=== PATIENT | female | born 1940 | race African-American/Black ===

== ENCOUNTER 2017-02-09 16:16 | Emergency (ER) | payer OTHER ==
--- NOTE | 2017-02-09 16:39 | PDOC ---
History of Present Illness - General Stated Complaint: MVP Time Seen by Provider: 02/09/17 16:38 History Source: Patient Exam Limitations: No Limitations - History of Present Illness Initial Comments: 02/09/17 16:38 This patient is a 76 y.o. F with pmh of HTN, DM, and anemia presenting with Past Surgical: Allergies: Social Hx: PCP: Dr. Fishman Past History - Past Medical History Allergies/Adverse Reactions: Allergies Allergy/AdvReac Type Severity Reaction Status Date / Time No Known Drug Allergies Allergy Verified 05/29/16 15:14 Home Medications: Ambulatory Orders Lisinopril [Prinivil -] 10 mg PO BID 05/24/12 Glimepiride [Amaryl] 4 mg PO BID 06/26/12 Saxagliptin HCl [Onglyza] 5 mg PO DAILY 01/01/16 Anemia: Yes Asthma: No Cancer: No Cardiac Disorders: No CVA: No COPD: No CHF: No Dementia: No Diabetes: Yes GI Disorders: Yes Disorders: No HTN: Yes Hypercholesterolemia: No Liver Disease: No Seizures: No Thyroid Disease: No - Surgical History Abdominal Surgery: No Appendectomy: No Cardiac Surgery: No Cholecystectomy: No Lung Surgery: No Neurologic Surgery: No Orthopedic Surgery: No - Immunization History Immunization Up to Date: Yes - Suicide/Smoking/Psychosocial Hx Smoking Status: No Smoking History: Never smoked Have you smoked in the past 12 months: No Number of Cigarettes Smoked Daily: 0 Hx Alcohol Use: No Drug/Substance Use Hx: No Substance Use Type: None Hx Substance Use Treatment: No Review of Systems - Review of Systems Comments:: 02/09/17 16:39 GENERAL/CONSTITUTIONAL: No fever or chills. No weakness. HEAD, EYES, EARS, NOSE AND THROAT: No change in vision. No ear pain or discharge. No sore throat. CARDIOVASCULAR: No chest pain or shortness of breath RESPIRATORY: No cough, wheezing, or hemoptysis. GASTROINTESTINAL: No nausea, vomiting, diarrhea or constipation. GENITOURINARY: No dysuria, frequency, or change in urination. MUSCULOSKELETAL: No joint or muscle swelling or pain. No neck or back pain. SKIN: No rash NEUROLOGIC: No headache, vertigo, loss of consciousness, or change in strength/ sensation. ENDOCRINE: No increased thirst. No abnormal weight change HEMATOLOGIC/LYMPHATIC: No anemia, easy bleeding, or history of blood clots. ALLERGIC/IMMUNOLOGIC: No hives or skin allergy. *Physical Exam - Physical Exam Comments: 02/09/17 16:39 GENERAL: Awake, alert, and fully oriented, in no acute distress HEAD: No signs of trauma, normocephalic, atraumatic EYES: PERRLA, EOMI, sclera anicteric, conjunctiva clear ENT: Auricles normal inspection, hearing grossly normal, nares patent, oropharynx clear without exudates. Moist mucosa NECK: Normal ROM, supple, no lymphadenopathy, JVD, or masses LUNGS: No distress, speaks full sentences, clear to auscultation bilaterally HEART: Regular rate and rhythm, normal S1 and S2, no murmurs, rubs or gallops, peripheral pulses normal and equal bilaterally. ABDOMEN: Soft, nontender, normoactive bowel sounds. No guarding, no rebound. No masses EXTREMITIES: Normal inspection, Normal range of motion, no edema. No clubbing or cyanosis. NEUROLOGICAL: Cranial nerves II through XII grossly intact. Normal speech, normal gait, no focal sensorimotor deficits SKIN: Warm, Dry, normal turgor, no rashes or lesions noted.
[2017-02-09 17:08] VITALS: PULSE 77; BMI 74.7
[2017-02-09] MEDS ORDERED: KETOROLAC TROMETHAMINE 30 MG/1 ML VIAL IVPUSH STA (17:23)
[2017-02-09] MEDS ORDERED: CYCLOBENZAPRINE HCL 5 MG TABLET PO ONE (17:24)
[2017-02-09] MEDS ORDERED: CYCLOBENZAPRINE HCL 10 MG TABLET (FP) ONE (17:25)
[2017-02-09] MEDS ORDERED: KETOROLAC TROMETHAMINE 30 MG/1 ML VIAL ONE (17:25)
[2017-02-09] MEDS ORDERED: KETOROLAC TROMETHAMINE 60 MG/2 ML VIAL ONE (17:25)
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
[2017-02-09 18:43] VITALS: BP 180/90; TEMP 97.8
== END 2017-02-09 18:43 | disposition home or self-care (01) ==
LOC: JER 16:16
PROC: 3E0333Z Introduction of Anti-inflammatory into Peripheral Vein, Percutaneous Approach (ICD-10-PCS; principal; 2017-02-09)
DX: R51 Headache (principal); V43.52XA Car driver injured in collision with other type car in traffic accident, initial encounter; Y92.488 Other paved roadways as the place of occurrence of the external cause; Y93.89 Activity, other specified; I10 Essential (primary) hypertension; E11.9 Type 2 diabetes mellitus without complications; Z79.84 Long term (current) use of oral hypoglycemic drugs
CPT/HCPCS: 70450-TC; 99282-25

== ENCOUNTER 2017-10-08 16:38 | Observation (INO) | payer MEDICARE, OTHER ==
--- NOTE | 2017-10-08 16:41 | PDOC ---
Rapid Medical Evaluation Time Seen by Provider: 10/08/17 16:40 Medical Evaluation: Allergies Allergy/AdvReac Type Severity Reaction Status Date / Time No Known Drug Allergies Allergy Verified 02/09/17 17:08 10/08/17 16:40 I have performed a brief in-person evaluation of this patient. The patient presents with a chief complaint of: CP w/ sob since yesterday. H/o HTN, DM, anemia Pertinent physical exam findings:appears very uncomfortable at triage but stable I have ordered the following:ekg/cxr/labs The patient will proceed to the ED for further evaluation Discharge Disposition - Diagnosis Chest pain Qualifiers: Chest pain type: unspecified Qualified Code(s): R07.9 - Chest pain, unspecified - Referrals - Patient Instructions - Post Discharge Activity
[2017-10-08 17:15] LABS: BASO % 0.7 % (0-2.0); HEMATOCRIT 33.4 % (32.4-45.2); HEMOGLOBIN 10.9 GM/dL (10.7-15.3); LYMPH % 46.7 % (8-40); MCH 26.3 pg (25.7-33.7); MCHC 32.5 g/dl (32.0-36.0); MEAN CELL VOLUME 80.8 fl (80-96); MEAN PLT VOLUME 10.2 fl (7.5-11.1); MONO % 7.5 % (3.8-10.2); NEUT % 42.1 % (42.8-82.8); PLATELET COUNT 188 K/MM3 (134-434); RBC 4.14 M/mm3 (3.60-5.2); RDW 13.1 % (11.6-15.6); WHITE BLOOD COUNT 6.6 K/mm3 (4.0-10.0)
--- NOTE | 2017-10-08 17:38 | PDOC ---
History of Present Illness - General Chief Complaint: Chest Pain Stated Complaint: CHEST PAIN Time Seen by Provider: 10/08/17 16:40 History Source: Patient Exam Limitations: No Limitations - History of Present Illness Initial Comments: 10/08/17 17:59 77y F hx of htn, dm, presenst with complaint of chest pain and sob. Pt states shew as in her usual state of health until yeserday when she started to feel sob. pt notes she was dyspneic on exertion and endorses orthopnea. pt notes mild chest pressure, symptoms resolved until this morning when she was heading to the [facility]. 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 pt notes some leg swelling which typically is not a problem for her. pt denies any cough, fever/chills, abd pain, n/v, diaprresis PMD: Sravanthi pt states she cannot take asa due to 'bleeding everywhere' Past History - Past Medical History Allergies/Adverse Reactions: Allergies Allergy/AdvReac Type Severity Reaction Status Date / Time No Known Drug Allergies Allergy Verified 10/08/17 16:40 acetaminophen [From Percocet] AdvReac Mild Verified 10/09/17 04:25 oxycodone [From Percocet] AdvReac Mild Verified 10/09/17 04:25 Home Medications: Ambulatory Orders Saxagliptin HCl [Onglyza] 5 mg PO DAILY 01/01/16 Lisinopril [Zestril] 30 mg PO DAILY 10/08/17 Aspirin [ASA -] 81 mg PO DAILY #30 tab.chew 10/13/17 Atorvastatin Ca [Lipitor] 40 mg PO HS #30 tablet 10/13/17 Furosemide [Lasix -] 40 mg PO DAILY #30 tablet 10/13/17 Isosorbide Mononitrate [Imdur -] 30 mg PO DAILY #30 tab.sr.24h 10/13/17 Lisinopril [Prinivil] 10 mg PO DAILY tablet 10/13/17 Metoprolol Succinate [Toprol XL -] 25 mg PO DAILY #30 tab.sr.24h 10/13/17 Anemia: Yes Asthma: No Cancer: No Cardiac Disorders: No CVA: No COPD: No CHF: No Dementia: No Diabetes: Yes GI Disorders: Yes Disorders: No HTN: Yes Hypercholesterolemia: No Liver Disease: No Seizures: No Thyroid Disease: No - Surgical History Abdominal Surgery: No Appendectomy: No Cardiac Surgery: No Cholecystectomy: No Lung Surgery: No Neurologic Surgery: No Orthopedic Surgery: No - Immunization History Immunization Up to Date: Yes - Suicide/Smoking/Psychosocial Hx Smoking Status: No Smoking History: Never smoked Have you smoked in the past 12 months: No Number of Cigarettes Smoked Daily: 0 Hx Alcohol Use: No Drug/Substance Use Hx: No Substance Use Type: None Hx Substance Use Treatment: No Cardiac Specific PMH - Complaint Specific PMHX Pacemaker: No Review of Systems - Review of Systems Able to Perform ROS?: Yes Comments:: 10/08/17 18:04 Constitutional - no reported Fever, Chills, HEENT: no reported vision changes, sore throat Respiratory: +manzanares, sob, no reported cough, hemoptysis Cardiac:+chest pain,leg swelling no reported palpitations, light headedness, Abd/GI: no reported abd pain, nausea, vomiting, blood per rectum, melena, diarrhea : no reported dysuria, frequency, discharge Musculskelatal - no reported back pain, joint swelling skin - no reported bruising, erythema, rash neurological: no reported headache, numbness, focal weakness, tingling, ataxia, hematologic: no reported easy bruising, easy bleeding *Physical Exam - Vital Signs Last Vital Signs Temp Pulse Resp BP Pulse Ox 99.8 F H 68 18 127/61 100 10/13/17 13:55 10/13/17 13:55 10/13/17 13:55 10/13/17 13:55 10/13/17 10:00 - Physical Exam Comments: 10/08/17 18:05 GENERAL: The patient is awake, alert, and fully oriented, Nontoxic - in no acute distress. HEAD: Normocephalic, atraumatic. EYES: extraocular movements intact, sclera anicteric, conjunctiva clear. ENT: Normal voice, Moist mucous membranes. NECK: Normal range of motion, supple LUNGS: Breath sounds equal, clear to auscultation bilaterally. No wheezes, no rhonchi, no rales. HEART: Regular rate and rhythm, normal S1 and S2 without murmur, rub or gallop. ABDOMEN: Soft, nontender, normoactive bowel sounds. No guarding, no rebound. . No CVA tenderness EXTREMITIES: Normal range of motion, +1piting edema b/l, neg homans sign. NEUROLOGICAL: No facial assymetry, Normal speech, PSYCH: Normal mood, normal affect. SKIN: Warm, Dry, normal turgor, Heart Score/ECG Review - ECG Impressions Comment:: 10/08/17 18:07 Twelve-lead EKG was performed and reviewed by me. There is normal sinus rhythm with a normal rate. The axis is normal. The intervals are normal. There is normal R wave progression twi in I and aVL, no change from ekg dated jan 01, 2016 ED Treatment Course - LABORATORY CBC & Chemistry Diagram: 10/13/17 06:45 10/13/17 06:45 - ADDITIONAL ORDERS Additional order review: 10/08/17 17:06 RBC 4.14 MCV 80.8 MCHC 32.5 RDW 13.1 MPV 10.2 Neutrophils % 42.1 L D Lymphocytes % 46.7 H D Monocytes % 7.5 Eosinophils % 3.0 D Basophils % 0.7 - Medications Given in the ED: ED Medications Discontinued Medications Generic Name Dose Route Start Last Admin Trade Name Freq PRN Reason Stop Dose Admin Acetaminophen 325 mg 10/08/17 23:00 10/08/17 23:35 Tylenol - PO 10/08/17 23:01 Not Given ONCE ONE Aspirin 81 mg 10/09/17 10:00 10/13/17 09:45 Asa - PO 81 mg DAILY LUCA Administration Atorvastatin Calcium 40 mg 10/09/17 22:00 10/12/17 21:48 Lipitor - PO 40 mg HS LUCA Administration Enoxaparin Sodium 100 mg 10/09/17 22:00 10/13/17 09:45 Lovenox - SQ Not Given BID LUCA Furosemide 40 mg 10/11/17 16:15 10/13/17 09:45 Lasix - PO 40 mg DAILY LUCA Administration Insulin Aspart 1 vial 10/09/17 07:00 10/13/17 11:52 Novolog Vial Sliding Scale - SQ 8 units TIDAC LUCA Administration Protocol Isosorbide Mononitrate 30 mg 10/09/17 18:15 10/13/17 09:45 Imdur - PO 30 mg DAILY LUCA Administration Lisinopril 30 mg 10/09/17 10:00 10/09/17 09:37 Prinivil PO 30 mg DAILY LUCA Administration Lisinopril 10 mg 10/10/17 10:00 10/13/17 09:45 Prinivil PO 10 mg DAILY LUCA Administration Metoprolol Succinate 25 mg 10/09/17 18:15 10/13/17 09:45 Toprol Xl - PO 25 mg DAILY LUCA Administration Oxycodone HCl 5 mg 10/08/17 23:00 10/08/17 23:35 Roxicodone - PO 10/08/17 23:01 Not Given ONCE ONE Regadenoson 0.4 mg 10/12/17 14:30 10/12/17 13:05 Lexiscan IVPUSH 10/12/17 14:31 0.4 mg ONCE ONE Administration Medical Decision Making - Medical Decision Making 10/08/17 18:06 77-year-old female history of diabetes, hypertension presenting with complaint of chest pain, shortness of breath, orthopnea On exam the patient is in no acute distress however she does have some pitting edema in lower extremities. Differential patient's symptoms includes possible ACS, congestive heart failure , renal failure, liver failure Will obtain, CBC, LFTs, UA, EKG, chest x-ray Will discuss with an IV at disposition anticipate observation for ACS stratification 10/08/17 18:[address] wang agree with admission for further management Case discussed in detail with admitting physician including history, physical exam and ancillary studies. Admitting physician has assumed care for the patient, will follow all pending diagnostics and will complete the evaluation and treatment. *DC/Admit/Observation/Transfer Diagnosis at time of Disposition: Chest pain Qualifiers: Chest pain type: unspecified Qualified Code(s): R07.9 - Chest pain, unspecified - Discharge Dispostion Disposition: VNS/HOME HEALTH CARE Condition at time of disposition: Stable Decision to Admit order: Yes - Prescriptions - Referrals - Patient Instructions - Post Discharge Activity
[2017-10-08 17:42] LABS: CHLORIDE 103 mmol/L (98-107); SODIUM 137 mmol/L (136-145)
[2017-10-08 17:51] LABS: ALBUMIN 3.8 g/dl (3.4-5.0); ALK PHOS 97 U/L (45-117); ANION GAP 6 (8-16); BILIRUBIN,TOTAL 0.9 mg/dL (0.2-1.0); BLOOD UREA NITROGEN 16 mg/dL (7-18); CALCIUM 8.9 mg/dL (8.5-10.1); CO2 28 mmol/L (21-32); CREATININE 1.5 mg/dL (0.55-1.02); GLUCOSE,RANDOM 174 mg/dL (74-106); SGPT/ALT 18 U/L (12-78); TOT PROT 7.9 g/dl (6.4-8.2)
[2017-10-08 17:53] LABS: POTASSIUM 4.4 mmol/L (3.5-5.1); SGOT/AST 16 U/L (15-37)
--- NOTE | 2017-10-08 19:58 | HP ---
CHIEF COMPLAINT: Chest Pain, SOB PCP: Dr. Fishman Canine Deputy: Dr. Arboleda HISTORY OF PRESENT ILLNESS: This is a 77 y/o woman with a past medical history of HTN, DM, Anemia. Who presents to the ED with chest tightness and SOB x 1 day. Patient reports that the pain started when getting out of her car, increased on movement. Patient reports having an Echo recently 09/22/17- unaware of the results. Patient reports seeing her PCP yesterday and was "feeling fine". Patient denies familial Cardiac History. Patient denies fall, trauma or heavy lifting. Patient denies fever, chills, cough, dizziness, CLOUD, palpitations, AP, N/V/D. ER course was notable for: (1) Trop I 0.14 (2) EKG- NSR, T wave abnormality I, avl (3) Recent Travel: None PAST MEDICAL HISTORY: See HPI PAST SURGICAL HISTORY: Fibroids removed Social History: Smoking: Never Alcohol: None Drugs: None Lives with family, Independent Family History: Non-Contributory Allergies No Known Drug Allergies Allergy (Verified 10/08/17 16:40) HOME MEDICATIONS: Home Medications Medication Instructions Recorded Lisinopril [Prinivil -] 10 mg PO BID 05/24/12 Glimepiride [Amaryl] 4 mg PO BID 06/26/12 Saxagliptin HCl [Onglyza] 5 mg PO DAILY 01/01/16 Cyclobenzaprine HCl [Flexeril 10 5 mg PO BID PRN #12 tablet 02/09/17 mg] Ibuprofen [Motrin -] 600 mg PO TID PRN #21 tablet 02/09/17 Oxycodone HCl/Acetaminophen 1 - 2 tab PO Q6H PRN #12 tab MDD 4 02/09/17 [Percocet 5-325 mg Tablet] REVIEW OF SYSTEMS CONSTITUTIONAL: Absent: fever, chills, diaphoresis, generalized weakness, malaise, loss of appetite, weight change HEENT: Absent: rhinorrhea, nasal congestion, throat pain, throat swelling, difficulty swallowing, mouth swelling, ear pain, eye pain, visual changes CARDIOVASCULAR: chest pain, peripheral edema Absent: syncope, palpitations, irregular heart rate, lightheadedness RESPIRATORY: shortness of breath Absent: cough, dyspnea with exertion, orthopnea, wheezing, stridor, hemoptysis GASTROINTESTINAL: Absent: abdominal pain, abdominal distension, nausea, vomiting, diarrhea, constipation, melena, hematochezia GENITOURINARY: Absent: dysuria, frequency, urgency, hesitancy, hematuria, flank pain, genital pain MUSCULOSKELETAL: Absent: myalgia, arthralgia, joint swelling, back pain, neck pain SKIN: Absent: rash, itching, pallor HEMATOLOGIC/IMMUNOLOGIC: Absent: easy bleeding, easy bruising, lymphadenopathy, frequent infections ENDOCRINE: Absent: unexplained weight gain, unexplained weight loss, heat intolerance, cold intolerance NEUROLOGIC: Absent: headache, focal weakness or paresthesias, dizziness, unsteady gait, seizure, mental status changes, bladder or bowel incontinence PSYCHIATRIC: Absent: anxiety, depression, suicidal or homicidal ideation, hallucinations. PHYSICAL EXAMINATION Vital Signs - 24 hr 10/08/17 10/08/17 16:41 19:35 Temperature 98.4 F 97.8 F Pulse Rate 79 66 Pulse Rate [ 66 Apical] Respiratory 20 16 Rate Blood Pressure 148/54 Blood Pressure 175/72 [Left Arm] O2 Sat by Pulse 99 100 Oximetry (%) GENERAL: Awake, alert, and fully oriented, in no acute distress. HEAD: Normal with no signs of trauma. EYES: Pupils equal, round and reactive to light, extraocular movements intact, sclera anicteric, conjunctiva clear. No lid lag. EARS, NOSE, THROAT: Ears normal, nares patent, oropharynx clear without exudates. Moist mucous membranes. NECK: Normal range of motion, supple without lymphadenopathy, JVD, or masses. LUNGS: Breath sounds equal, clear to auscultation bilaterally. No wheezes, and no crackles. No accessory muscle use. HEART: Regular rate and rhythm, normal S1 and S2 without murmur, rub or gallop. CP is reproducible on palpation ABDOMEN: Soft, nontender, not distended, normoactive bowel sounds, no guarding, no rebound, no masses. No hepatomegaly or splenomegaly. MUSCULOSKELETAL: Normal range of motion at all joints. No bony deformities or tenderness. No CVA tenderness. UPPER EXTREMITIES: 2+ pulses, warm, well-perfused. No cyanosis. No clubbing. No peripheral edema. LOWER EXTREMITIES: 2+ pulses, warm, well-perfused. No calf tenderness. +1 Bilateral ankles peripheral edema. NEUROLOGICAL: Cranial nerves II-XII intact. Normal speech. Gait not observed. PSYCHIATRIC: Cooperative. Good eye contact. Appropriate mood and affect. SKIN: Warm, dry, normal turgor, no rashes or lesions noted, normal capillary refill. Laboratory Results - last 24 hr 10/08/17 10/08/17 10/08/17 17:06 17:06 17:06 WBC 6.6 RBC 4.14 Hgb 10.9 Hct 33.4 MCV 80.8 MCH 26.3 MCHC 32.5 RDW 13.1 Plt Count 188 MPV 10.2 Neutrophils % 42.1 L D Lymphocytes % 46.7 H D Monocytes % 7.5 Eosinophils % 3.0 D Basophils % 0.7 Nucleated RBC % 0 Sodium 137 Potassium 4.4 Chloride 103 Carbon Dioxide 28 Anion Gap 6 L BUN 16 Creatinine 1.5 H Creat Clearance w eGFR 33.67 Random Glucose 174 H Calcium 8.9 Total Bilirubin 0.9 D AST 16 ALT 18 Alkaline Phosphatase 97 Creatine Kinase 150 Creatine Kinase Index 2.1 CK-MB (CK-2) 3.17 Troponin I 0.14 H B-Natriuretic Peptide 100.61 Total Protein 7.9 Albumin 3.8 ASSESSMENT/PLAN: This is a 77 y/o woman PMHx HTN, DM, Anemia. Placed in Tele Observation Chest Pain, r/o ACS Plan: FEN - Po Fluids as tolerated - Replete lytes prn - Low Na, Diabetic Diet DVT ppx - OOB - SCDs - Consider ACs if LOS > 48hr Code Status: Full Code Dispo: Tele Observation Problem List - Problem (1) Chest pain Assessment/Plan: - r/o ACS vs musculoskeletal - HEART Score 5 - ESTEBAN 2 - Continue cardiac monitoring - Serial Enzymes - Appreciate Cardiology Consult - EKG- reviewed no change compared to prior study - Will have Day provider f/u with Echo done on 09/22/17 - Asa - Consider Stress test - HgbA1c in am Code(s): R07.9 - CHEST PAIN, UNSPECIFIED Qualifiers: Chest pain type: unspecified Qualified Code(s): R07.9 - Chest pain, unspecified (2) Diabetes Assessment/Plan: - Stable - BGMs - ISS - Continue, NF Onglyza 2.5mg (renal dosing, CrCl 37) - HgbA1c in am - Monitor renal function Code(s): E11.9 - TYPE 2 DIABETES MELLITUS WITHOUT COMPLICATIONS (3) HTN (hypertension) Assessment/Plan: - Stable - Monitor BP - Continue Lisinopril (renal dosing, CrCl 37) - Monitor renal function Code(s): I10 - ESSENTIAL (PRIMARY) HYPERTENSION (4) Renal insufficiency Assessment/Plan: - Cr 1.5 at baseline - Will continue to monitor - FU with nephrology outpatient - Avoid nephrotoxic drugs - Repeat BMP in am Code(s): N28.9 - DISORDER OF KIDNEY AND URETER, UNSPECIFIED (5) Anemia Assessment/Plan: - Stable - At baseline - Will transfuse if Hgb < 7.0 Code(s): D64.9 - ANEMIA, UNSPECIFIED Visit type - Emergency Visit Emergency Visit: Yes ED Registration Date: 10/08/17 Care time: The patient presented to the Emergency Department on the above date and was hospitalized for further evaluation of their emergent condition. - New Patient This patient is new to me today: Yes Date on this admission: 10/08/17 - Critical Care Critical Care patient: No Hospitalist Screening - Colonoscopy Questionnaire Colonoscopy Questionnaire: Colonoscopy Questionnaire - Patient: 50 - 75 years old and never had a screening colonoscopy: No History of colon or rectal polyps, or CA: No History of IBD, Crohn's disease or UC: No History of abdominal radiation therapy as a child: No - Relative: 1 with colon or rectal CA, or polyps at age 60 or younger: No Colon or rectal CA diagnosed at age 45 or younger: No Multiple relatives with colon or rectal CA: No - Outcome: Screening Result: Negative Screen
[2017-10-08 22:58] VITALS: BMI 35.3
[2017-10-08] MEDS ORDERED: oxyCODONE HCL 5 MG TABLET PO ONE (23:00)
[2017-10-08] MEDS ORDERED: ACETAMINOPHEN 325 MG TABLET (FP) PO ONE (23:00)
[2017-10-09 01:33] LABS: INR 0.97 (0.82-1.09)
[2017-10-09] MEDS: INSULIN SLIDING SCALE (NOVOLOG) 1 VIAL SQ SCH ×3 (06:23→17:11)
[2017-10-09] MEDS ORDERED: sitaGLIPtin PHOSPHATE 50 MG TABLET PO SCH (07:00)
[2017-10-09 07:31] LABS: BASO % 0.3 % (0-2.0); EOS % 3.3 % (0-4.5); HEMOGLOBIN 10.9 GM/dL (10.7-15.3); LYMPH % 45.5 % (8-40); MCHC 32.9 g/dl (32.0-36.0); MEAN PLT VOLUME 10.2 fl (7.5-11.1); MONO % 8.1 % (3.8-10.2); NEUT % 42.8 % (42.8-82.8); PLATELET COUNT 166 K/MM3 (134-434); RBC 4.03 M/mm3 (3.60-5.2); RDW 13.4 % (11.6-15.6); WHITE BLOOD COUNT 5.8 K/mm3 (4.0-10.0)
[2017-10-09 07:47] LABS: ANION GAP 8 (8-16); BLOOD UREA NITROGEN 17 mg/dL (7-18); CALCIUM 8.8 mg/dL (8.5-10.1); CHLORIDE 105 mmol/L (98-107); CO2 28 mmol/L (21-32); CREATININE 1.3 mg/dL (0.55-1.02); GLUCOSE,RANDOM 161 mg/dL (74-106); MAGNESIUM 2.1 mg/dL (1.8-2.4); PHOSPHOROUS 4.2 mg/dL (2.5-4.9); POTASSIUM 4.3 mmol/L (3.5-5.1); SODIUM 141 mmol/L (136-145)
--- NOTE | 2017-10-09 08:54 | EKG ---
Test Reason : Blood Pressure : / mmHG Vent. Rate : 071 BPM Atrial Rate : 071 BPM P-R Int : 158 ms QRS Dur : 090 ms QT Int : 402 ms P-R-T Axes : 049 040 105 degrees QTc Int : 436 ms NORMAL SINUS RHYTHM T WAVE ABNORMALITY, CONSIDER LATERAL ISCHEMIA ABNORMAL ECG WHEN COMPARED WITH ECG OF 01-JAN-2016 19:45, NO SIGNIFICANT CHANGE WAS FOUND Confirmed by HOLLIE RAMÍREZ MD ([id number]) on 10/09/2017 8:54:16 AM Referred By: Confirmed By:HOLLIE RAMÍREZ MD
[2017-10-09] MEDS ORDERED: PT OWN MED DRAWER 7, Y5N ONE (09:30)
[2017-10-09] MEDS: ASPIRIN 81 MG CHEWABLE TABLETS PO SCH (09:42)
[2017-10-09] MEDS ORDERED: LISINOPRIL 20 MG TABLET (FP) PO SCH (10:00)
--- NOTE | 2017-10-09 17:30 | EKG ---
Test Reason : Blood Pressure : / mmHG Vent. Rate : 070 BPM Atrial Rate : 070 BPM P-R Int : 196 ms QRS Dur : 100 ms QT Int : 408 ms P-R-T Axes : 039 038 105 degrees QTc Int : 440 ms NORMAL SINUS RHYTHM T WAVE ABNORMALITY, CONSIDER LATERAL ISCHEMIA ABNORMAL ECG WHEN COMPARED WITH ECG OF 08-OCT-2017 17:04, NO SIGNIFICANT CHANGE WAS FOUND Confirmed by HOLLIE RAMÍREZ MD ([id number]) on 10/09/2017 5:30:12 PM Referred By: Confirmed By:HOLLIE RAMÍREZ MD
--- NOTE | 2017-10-09 17:31 | CON.CARD ---
Consult Consult Specialty:: Cardiology Referred by:: Ms. Coulter and Dr. Fishman Reason for Consultation:: Chest pain - History of Present Illness Chief Complaint: Chest pain and SOB History of Present Illness: 77 year-old obese woman with a PMHx of HTN, DM, anemia admitted with chest pain and SOB. Ms. Montenegro developed intermittent chest chest tightness with associated shortness of breath one day prior to the admission. She reports that the pain started when getting out of her car, increased on movement. She had intermittent chest tightness since admission. She also complains of worsening SOB, orthopnea and markedly decreased exercise tolerance for 4-5 days. She denies palpitation, dizziness, syncope or near syncope. ECG showed high lateral - (I and aVL) ischemic changes. Troponin is mildly elevated (0.14) without dynamic changes. - History Source History Provided By: Patient Limitations to Obtaining History: No Limitations - Past Medical History Cardio/Vascular: Yes: HTN, Hyperlipdemia Heme/Onc: Yes: Anemia - Alcohol/Substance Use Hx Alcohol Use: No - Smoking History Smoking history: Never smoked Have you smoked in the past 12 months: No Aproximately how many cigarettes per day: 0 Home Medications - Allergies Allergies/Adverse Reactions: Allergies Allergy/AdvReac Type Severity Reaction Status Date / Time No Known Drug Allergies Allergy Verified 10/08/17 16:40 acetaminophen [From Percocet] AdvReac Mild Verified 10/09/17 04:25 oxycodone [From Percocet] AdvReac Mild Verified 10/09/17 04:25 - Home Medications Home Medications: Ambulatory Orders Saxagliptin HCl [Onglyza] 5 mg PO DAILY 01/01/16 Lisinopril [Zestril] 30 mg PO DAILY 10/08/17 Review of Systems - Review of Systems Constitutional: reports: No Symptoms Eyes: reports: No Symptoms HENT: reports: No Symptoms Neck: reports: No Symptoms Cardiovascular: reports: Chest Pain, Shortness of Breath Respiratory: reports: Cough, Exercise Intolerance, Orthopnea, SOB, SOB on Exertion Gastrointestinal: reports: No Symptoms Genitourinary: reports: No Symptoms Breasts: reports: No Symptoms Reported Musculoskeletal: reports: No Symptoms Integumentary: reports: No Symptoms Neurological: reports: No Symptoms Endocrine: reports: No Symptoms Hematology/Lymphatic: reports: No Symptoms Vital Signs: Vital Signs Temperature 98.1 F 10/09/17 13:56 Pulse Rate 81 10/09/17 13:56 Respiratory Rate 18 10/09/17 13:56 Blood Pressure 132/57 10/09/17 13:56 O2 Sat by Pulse Oximetry (%) 100 10/08/17 20:30 General: Well developed. Obese. No acute distress. Head: Normocephalic. Atraumatic, Eyes: PERRLA, EOMI. Sclerae anicteric. Conjunctivae clear. Neck: Supple. No JVD. No bruits. Heart: Normal S1, S2: Regular rhythm and rate. II/ DAWIT. No gallop or rub. Lungs: Symmetrical air entry. Clear to auscultation. No crackle. No wheezing or rhonchi. Abdomen: Soft. Bowel sound positive. Non tender. No masses. Extremities: Trace edema. No clubbing or cyanosis - Other Data Labs, Other Data: CBC, BMP 10/09/17 06:45 10/09/17 06:45 INR, PTT INR 0.97 (0.82-1.09) 10/09/17 00:10 Troponin, BNP 10/08/17 10/08/17 10/09/17 17:06 17:06 00:10 Troponin I 0.14 H 0.14 H B-Natriuretic Peptide 100.61 10/09/17 06:45 Troponin I 0.14 H B-Natriuretic Peptide Troponin, BNP 10/08/17 10/08/17 10/09/17 17:06 17:06 00:10 Troponin I 0.14 H 0.14 H B-Natriuretic Peptide 100.61 10/09/17 06:45 Troponin I 0.14 H B-Natriuretic Peptide Sinus rhythm. Normal axis. I and aVL down sloping depression and T inversion. Imaging - Results EKG: Image Reviewed (Sinus rhythm. Normal axis. I and aVL down sloping depression and T inversion.) Assessment/Plan 77 year-old obese woman with a PMHx of HTN, DM, anemia admitted with chest pain and SOB. ECG showed high lateral - (I and aVL) ischemic changes. Troponin is mildly elevated (0.14) without dynamic changes. 1) Unstable angina: New onset of chest pain with ECG evidence of ischemia and mild elevated troponin. The patient has multiple risk factors of CAD, intermediate to high likelihood of significant CAD. Options of cardiac cath vs conservative medical management were discussed with the patient. She prefers to medical therapy. Start Lovenox 1 mg/kg q12h for 48 to 72 hours. Start metoprolol succinate 25 mg daily. Add Imdur 30 mg daily. Start atorvastatin 40 mg daily. Obtain echocardiogram. Regadenoson nuclear stress for risk stratification. 2) SOB with decreased exercise tolerance, possible angina equivalent. She has no physical signs of fluid overload. BNP is within normal range. Observation. Use Lasix prn. Obtain echocardiogram. We will follow the patient with you.
--- NOTE | 2017-10-09 18:06 | PN ---
Physical Exam: SUBJECTIVE: Patient seen and examined. She denies CP, SOB. OBJECTIVE: Vital Signs Period Temp Pulse Resp BP Sys/Troy Pulse Ox Last 24 Hr 97.5 F-98.5 F 64-81 16-20 132-175/57-99 100-100 GENERAL: The patient is awake, alert, and fully oriented, in no acute distress. LUNGS: Breath sounds equal, clear to auscultation bilaterally, no wheezes, no crackles, no accessory muscle use. HEART: Regular rate and rhythm, S1, S2, (+) 2/6 SM. ABDOMEN: Obese, soft, nontender, nondistended, normoactive bowel sounds, no guarding, no rebound, no hepatosplenomegaly, no masses. EXTREMITIES: 2+ pulses, warm, well-perfused, trace edema. Laboratory Results - last 24 hr 10/08/17 10/08/17 10/09/17 17:06 17:06 00:10 WBC RBC Hgb Hct MCV MCH MCHC RDW Plt Count MPV Neutrophils % Lymphocytes % Monocytes % Eosinophils % Basophils % Nucleated RBC % PT with INR 11.00 INR 0.97 Sodium Potassium Chloride Carbon Dioxide Anion Gap BUN Creatinine POC Glucometer Random Glucose Hemoglobin A1c % Calcium Phosphorus Magnesium Creatine Kinase Index 2.1 CK-MB (CK-2) 3.17 Troponin I B-Natriuretic Peptide 100.61 10/09/17 10/09/17 10/09/17 00:10 06:20 06:45 WBC 5.8 RBC 4.03 Hgb 10.9 Hct 33.0 MCV 82.0 MCH 27.0 MCHC 32.9 RDW 13.4 Plt Count 166 MPV 10.2 Neutrophils % 42.8 Lymphocytes % 45.5 H Monocytes % 8.1 Eosinophils % 3.3 Basophils % 0.3 Nucleated RBC % 0 PT with INR INR Sodium Potassium Chloride Carbon Dioxide Anion Gap BUN Creatinine POC Glucometer 178 Random Glucose Hemoglobin A1c % Calcium Phosphorus Magnesium Creatine Kinase Index CK-MB (CK-2) Troponin I 0.14 H B-Natriuretic Peptide 10/09/17 10/09/17 10/09/17 06:45 06:45 06:45 WBC RBC Hgb Hct MCV MCH MCHC RDW Plt Count MPV Neutrophils % Lymphocytes % Monocytes % Eosinophils % Basophils % Nucleated RBC % PT with INR INR Sodium 141 Potassium 4.3 Chloride 105 Carbon Dioxide 28 Anion Gap 8 BUN 17 Creatinine 1.3 H POC Glucometer Random Glucose 161 H Hemoglobin A1c % 10.0 H Calcium 8.8 Phosphorus 4.2 Magnesium 2.1 Creatine Kinase Index CK-MB (CK-2) Troponin I 0.14 H B-Natriuretic Peptide 10/09/17 10/09/17 11:30 16:30 WBC RBC Hgb Hct MCV MCH MCHC RDW Plt Count MPV Neutrophils % Lymphocytes % Monocytes % Eosinophils % Basophils % Nucleated RBC % PT with INR INR Sodium Potassium Chloride Carbon Dioxide Anion Gap BUN Creatinine POC Glucometer 270 152 Random Glucose Hemoglobin A1c % Calcium Phosphorus Magnesium Creatine Kinase Index CK-MB (CK-2) Troponin I B-Natriuretic Peptide Active Medications Generic Name Dose Route Start Last Admin Trade Name Freq PRN Reason Stop Dose Admin Aspirin 81 mg 10/09/17 10:00 10/09/17 09:42 Asa - PO Not Given DAILY [facility] Insulin Aspart 1 vial 10/09/17 07:00 10/09/17 17:11 Novolog Vial Sliding Scale - SQ Not Given TIDAC [facility] Protocol Lisinopril 30 mg 10/09/17 10:00 10/09/17 09:37 Prinivil PO 30 mg DAILY [facility] Administration ASSESSMENT/PLAN: 1. Acute NSTEMI - Has lateral T wave changes on EKG - Troponin 0.14 x 3 - Cardiology consult appreciated - Aspirin, Lovenox, Toprol XL, Lipitor, Imdur - Echocardiogram - Nuclear stress 2. HTN - Continue lisinopril - Toprol XL being added 3. Type 2 DM, uncontrolled - HgbA1c 10.0 - Continue Novolog sliding scale 4. Stage 3 CKD - Stable 5. Obesity with BMI 35.3 Visit type - Emergency Visit Emergency Visit: Yes ED Registration Date: 10/08/17 Care time: The patient presented to the Emergency Department on the above date and was hospitalized for further evaluation of their emergent condition. - New Patient This patient is new to me today: Yes Date on this admission: 10/09/17 - Critical Care Critical Care patient: No - Discharge Referral Referred to [facility] Med P.C[facility] No
[2017-10-09] MEDS: ISOSORBIDE MONONITRATE 30 MG TAB.SR.24H (FP) PO SCH (18:44)
[2017-10-09] MEDS: metoPROLOL SUCCINATE 25 MG TAB.SR.24H (FP) PO SCH (18:44)
[2017-10-09 19:45] LABS: URINE APPEARANCE CLEAR; URINE BILIRUBIN NEGATIVE (<2.0 mg/dL); URINE COLOR LTYELLOW; URINE GLUCOSE (UA) NEGATIVE (NEGATIVE); URINE KETONE NEGATIVE (NEGATIVE); URINE NITRITE NEGATIVE (NEGATIVE); URINE PROTEIN NEGATIVE (NEGATIVE); URINE UROBILINOGEN NEGATIVE mg/dL (0.2-1.0)
[2017-10-09 19:46] LABS: URINE LEUK ESTERASE 2+ (NEGATIVE)
[2017-10-09 20:00] LABS: EPI CELLS RARE /HPF (FEW)
[2017-10-09] MEDS: ATORVASTATIN CA 40 MG TABLET (FP) PO SCH (21:44)
[2017-10-09] MEDS: ENOXAPARIN NA (PORCINE) 100 MG/1 ML DISP.SYRIN SQ SCH (21:44)
[2017-10-10] MEDS: INSULIN SLIDING SCALE (NOVOLOG) 1 VIAL SQ SCH ×3 (06:13→18:09)
[2017-10-10 07:38] LABS: HEMATOCRIT 31.1 % (32.4-45.2); HEMOGLOBIN 10.2 GM/dL (10.7-15.3); MCH 26.9 pg (25.7-33.7); MCHC 32.9 g/dl (32.0-36.0); MEAN CELL VOLUME 81.9 fl (80-96); PLATELET COUNT 157 K/MM3 (134-434); RDW 13.4 % (11.6-15.6); WHITE BLOOD COUNT 6.4 K/mm3 (4.0-10.0)
[2017-10-10 08:10] LABS: ANION GAP 6 (8-16); BLOOD UREA NITROGEN 20 mg/dL (7-18); CALCIUM 8.3 mg/dL (8.5-10.1); CHLORIDE 106 mmol/L (98-107); CO2 27 mmol/L (21-32); GLUCOSE,RANDOM 174 mg/dL (74-106); POTASSIUM 4.4 mmol/L (3.5-5.1); SODIUM 139 mmol/L (136-145)
[2017-10-10 08:11] LABS: CREATININE 1.4 mg/dL (0.55-1.02)
[2017-10-10] MEDS: ISOSORBIDE MONONITRATE 30 MG TAB.SR.24H (FP) PO SCH (09:49)
[2017-10-10] MEDS: LISINOPRIL 10 MG TABLET (FP) PO SCH (09:49)
[2017-10-10] MEDS: ENOXAPARIN NA (PORCINE) 100 MG/1 ML DISP.SYRIN SQ SCH ×2 (09:49→21:30)
[2017-10-10] MEDS: metoPROLOL SUCCINATE 25 MG TAB.SR.24H (FP) PO SCH (09:49)
--- NOTE | 2017-10-10 15:46 | PN ---
Physical Exam: SUBJECTIVE: Patient seen and examined. She has not had any further chest pain or SOB. OBJECTIVE: Vital Signs Period Temp Pulse Resp BP Sys/Troy Pulse Ox Last 24 Hr 97.8 F-98.7 F 66-77 18-20 119-150/49-78 96-99 GENERAL: The patient is awake, alert, and fully oriented, in no acute distress. LUNGS: Breath sounds equal, clear to auscultation bilaterally, no wheezes, no crackles, no accessory muscle use. HEART: Regular rate and rhythm, S1, S2, (+) 2/6 SM. ABDOMEN: Obese, soft, nontender, nondistended, normoactive bowel sounds, no guarding, no rebound, no hepatosplenomegaly, no masses. EXTREMITIES: 2+ pulses, warm, well-perfused, no edema. Laboratory Results - last 24 hr 10/09/17 10/09/17 10/10/17 16:30 18:50 06:08 WBC RBC Hgb Hct MCV MCH MCHC RDW Plt Count MPV Sodium Potassium Chloride Carbon Dioxide Anion Gap BUN Creatinine POC Glucometer 152 193 Random Glucose Calcium Urine Color Ltyellow Urine Appearance Clear Urine pH 5.0 D Ur Specific [place] 1.013 Urine Protein Negative Urine Glucose (UA) Negative Urine Ketones Negative Urine Blood Negative Urine Nitrite Negative Urine Bilirubin Negative Urine Urobilinogen Negative Ur Leukocyte Esterase 2+ H Urine WBC (Auto) 11 Urine RBC (Auto) <1 Ur Epithelial Cells Rare 10/10/17 10/10/17 10/10/17 06:53 06:53 11:03 WBC 6.4 RBC 3.80 Hgb 10.2 L Hct 31.1 L MCV 81.9 MCH 26.9 MCHC 32.9 RDW 13.4 Plt Count 157 MPV 10.0 Sodium 139 Potassium 4.4 Chloride 106 Carbon Dioxide 27 Anion Gap 6 L BUN 20 H Creatinine 1.4 H POC Glucometer 328 Random Glucose 174 H Calcium 8.3 L Urine Color Urine Appearance Urine pH Ur Specific [place] Urine Protein Urine Glucose (UA) Urine Ketones Urine Blood Urine Nitrite Urine Bilirubin Urine Urobilinogen Ur Leukocyte Esterase Urine WBC (Auto) Urine RBC (Auto) Ur Epithelial Cells Active Medications Generic Name Dose Route Start Last Admin Trade Name Freq PRN Reason Stop Dose Admin Aspirin 81 mg 10/09/17 10:00 10/09/17 09:42 Asa - PO Not Given DAILY [facility] Atorvastatin Calcium 40 mg 10/09/17 22:00 10/09/17 21:44 Lipitor - PO 40 mg HS [facility] Administration Enoxaparin Sodium 100 mg 10/09/17 22:00 10/10/17 09:49 Lovenox - SQ 100 mg BID [facility] Administration Insulin Aspart 1 vial 10/09/17 07:00 10/10/17 11:43 Novolog Vial Sliding Scale - SQ 6 units TIDAC [facility] Administration Protocol Isosorbide Mononitrate 30 mg 10/09/17 18:15 10/10/17 09:49 Imdur - PO 30 mg DAILY [facility] Administration Lisinopril 10 mg 10/10/17 10:00 10/10/17 09:49 Prinivil PO 10 mg DAILY [facility] Administration Metoprolol Succinate 25 mg 10/09/17 18:15 10/10/17 09:49 Toprol Xl - PO 25 mg DAILY [facility] Administration ASSESSMENT/PLAN: 1. Acute NSTEMI - Has lateral T wave changes on EKG - Troponin 0.14 x 3 - Cardiology consult appreciated - Continue aspirin, Lovenox, Toprol XL, Lipitor, Imdur - Echocardiogram, nuclear stress 2. HTN - Continue lisinopril, Toprol XL 3. Type 2 DM, uncontrolled - HgbA1c 10.0 - Continue Novolog sliding scale 4. Stage 3 CKD - Stable 5. Obesity with BMI 35.3 Visit type - Emergency Visit Emergency Visit: Yes ED Registration Date: 10/08/17 Care time: The patient presented to the Emergency Department on the above date and was hospitalized for further evaluation of their emergent condition. - New Patient This patient is new to me today: No - Critical Care Critical Care patient: No - Discharge Referral Referred to [facility] Med P.C.: No
--- NOTE | 2017-10-10 16:23 | PN ---
Progress Note, Physician Chief Complaint: Patient appears comfortable. She has no recurrent chest pain or shortness of breath at rest. Complains of lower leg burning pain. Tele shows sinus rhythm at 65-70 BPM. 7 beat NSVT noted. History of Present Illness: 77 year-old obese woman with a PMHx of HTN, DM, anemia admitted with chest pain and SOB. ECG showed high lateral - (I and aVL) ischemic changes. Troponin is mildly elevated (0.14) without dynamic changes. - Current Medication List Current Medications: Active Medications Aspirin (Asa -) 81 mg PO DAILY [facility] Last Admin: 10/09/17 09:42 Dose: Not Given Atorvastatin Calcium (Lipitor -) 40 mg PO HS [facility] Last Admin: 10/09/17 21:44 Dose: 40 mg Enoxaparin Sodium (Lovenox -) 100 mg SQ BID [facility] Last Admin: 10/10/17 09:49 Dose: 100 mg Insulin Aspart (Novolog Vial Sliding Scale -) 1 vial SQ TIDAC [facility]; Protocol Last Admin: 10/10/17 11:43 Dose: 6 units Isosorbide Mononitrate (Imdur -) 30 mg PO DAILY [facility] Last Admin: 10/10/17 09:49 Dose: 30 mg Lisinopril (Prinivil) 10 mg PO DAILY [facility] Last Admin: 10/10/17 09:49 Dose: 10 mg Metoprolol Succinate (Toprol Xl -) 25 mg PO DAILY [facility] Last Admin: 10/10/17 09:49 Dose: 25 mg - Objective Vital Signs: Vital Signs Temperature 98.2 F 10/10/17 14:00 Pulse Rate 66 10/10/17 14:00 Respiratory Rate 18 10/10/17 14:00 Blood Pressure 119/52 10/10/17 14:00 O2 Sat by Pulse Oximetry (%) 96 10/10/17 11:00 General: Well developed. Obese. No acute distress. Head: Normocephalic. Atraumatic, Eyes: PERRLA, EOMI. Sclerae anicteric. Conjunctivae clear. Neck: Supple. No JVD. No bruits. Heart: Normal S1, S2: Regular rhythm and rate. II/ DAWIT. No gallop or rub. Lungs: Symmetrical air entry. Clear to auscultation. No crackle. No wheezing or rhonchi. Abdomen: Soft. Bowel sound positive. Non tender. No masses. Extremities: Trace edema. No clubbing or cyanosis Labs: CBC, BMP 10/10/17 06:53 10/10/17 06:53 INR, PTT INR 0.97 (0.82-1.09) 10/09/17 00:10 Assessment/Plan 77 year-old obese woman with a PMHx of HTN, DM, anemia admitted with chest pain and SOB. ECG showed high lateral - (I and aVL) ischemic changes. Troponin is mildly elevated (0.14) without dynamic changes. 1) Unstable angina: New onset of chest pain with ECG evidence of ischemia and mild elevated troponin. The patient has multiple risk factors of CAD, intermediate to high likelihood of significant CAD. Options of cardiac cath vs conservative medical management were discussed with the patient. She prefers to medical therapy. Continue Lovenox 1 mg/kg q12h for 48 to 72 hours. Continue metoprolol succinate 25 mg daily, Imdur 30 mg daily, atorvastatin 40 mg daily and Lisinopril 10 mg daily. Echocardiogram and Regadenoson nuclear stress Wednesday. 2) SOB with decreased exercise tolerance, possible angina equivalent. She has no physical signs of fluid overload. BNP is within normal range. Observation. Use Lasix prn. Echocardiogram. We will follow the patient with you.
[2017-10-10] MEDS: ASPIRIN 81 MG CHEWABLE TABLETS PO SCH (18:38)
[2017-10-10] MEDS: ATORVASTATIN CA 40 MG TABLET (FP) PO SCH (21:30)
[2017-10-11] MEDS: INSULIN SLIDING SCALE (NOVOLOG) 1 VIAL SQ SCH ×3 (06:26→17:30)
[2017-10-11] MEDS: ISOSORBIDE MONONITRATE 30 MG TAB.SR.24H (FP) PO SCH (09:41)
[2017-10-11] MEDS: ASPIRIN 81 MG CHEWABLE TABLETS PO SCH (09:41)
[2017-10-11] MEDS: metoPROLOL SUCCINATE 25 MG TAB.SR.24H (FP) PO SCH (09:41)
[2017-10-11] MEDS: ENOXAPARIN NA (PORCINE) 100 MG/1 ML DISP.SYRIN SQ SCH ×2 (09:41→22:13)
[2017-10-11] MEDS: LISINOPRIL 10 MG TABLET (FP) PO SCH (09:41)
--- NOTE | 2017-10-11 10:20 | PN ---
Progress Note, Physician Chief Complaint: NOTES REVIEWED AWAKE ALERT DENIES CHEST PAIN AWAITING STRESS TEST WEDNESDAY - Current Medication List Current Medications: Active Medications Aspirin (Asa -) 81 mg PO DAILY [facility] Last Admin: 10/11/17 09:41 Dose: 81 mg Atorvastatin Calcium (Lipitor -) 40 mg PO HS [facility] Last Admin: 10/10/17 21:30 Dose: 40 mg Enoxaparin Sodium (Lovenox -) 100 mg SQ BID [facility] Last Admin: 10/11/17 09:41 Dose: 100 mg Insulin Aspart (Novolog Vial Sliding Scale -) 1 vial SQ TIDAC [facility]; Protocol Last Admin: 10/11/17 06:26 Dose: Not Given Isosorbide Mononitrate (Imdur -) 30 mg PO DAILY [facility] Last Admin: 10/11/17 09:41 Dose: 30 mg Lisinopril (Prinivil) 10 mg PO DAILY [facility] Last Admin: 10/11/17 09:41 Dose: 10 mg Metoprolol Succinate (Toprol Xl -) 25 mg PO DAILY [facility] Last Admin: 10/11/17 09:41 Dose: 25 mg - Objective Vital Signs: Vital Signs Temperature 98.5 F 10/11/17 05:35 Pulse Rate 65 10/11/17 05:35 Respiratory Rate 20 10/11/17 05:35 Blood Pressure 139/61 10/11/17 05:35 O2 Sat by Pulse Oximetry (%) 96 10/11/17 03:00 Constitutional: Yes: Mild Distress Eyes: Yes: WNL HENT: Yes: WNL Neck: Yes: WNL Cardiovascular: Yes: WNL Respiratory: Yes: WNL Gastrointestinal: Yes: WNL Genitourinary: Yes: WNL Musculoskeletal: Yes: WNL Extremities: Yes: WNL Edema: No Peripheral Pulses WNL: Yes Integumentary: Yes: WNL Wound/Incision: Yes: Clean/Dry Neurological: Yes: WNL ...Motor Strength: WNL Labs: CBC, BMP 10/10/17 06:53 10/10/17 06:53 INR, PTT INR 0.97 (0.82-1.09) 10/09/17 00:10 Problem List - Problems (1) Anemia Code(s): D64.9 - ANEMIA, UNSPECIFIED (2) Chest pain Code(s): R07.9 - CHEST PAIN, UNSPECIFIED Qualifiers: Chest pain type: unspecified Qualified Code(s): R07.9 - Chest pain, unspecified (3) HTN (hypertension) Code(s): I10 - ESSENTIAL (PRIMARY) HYPERTENSION (4) Renal insufficiency Code(s): N28.9 - DISORDER OF KIDNEY AND URETER, UNSPECIFIED (5) Diabetes Code(s): E11.9 - TYPE 2 DIABETES MELLITUS WITHOUT COMPLICATIONS Assessment/Plan AWAIT STRESS TEST TOMORROW LIPID PANEL ON LIPITOR/ASA CARDIAC WORKUP ON TELE NO ALARMS OOB TO CHAIR
--- NOTE | 2017-10-11 16:07 | PN ---
Progress Note, Physician Chief Complaint: Patient appears comfortable. She has no recurrent chest pain or shortness of breath at rest. Complains of lower leg tightness sensation. Tele shows sinus rhythm at 65-70 BPM. No recurrent NSVT noted. History of Present Illness: 77 year-old obese woman with a PMHx of HTN, DM, anemia admitted with chest pain and SOB. ECG showed high lateral - (I and aVL) ischemic changes. Troponin is mildly elevated (0.14) without dynamic changes. - Current Medication List Current Medications: Active Medications Aspirin (Asa -) 81 mg PO DAILY [facility] Last Admin: 10/11/17 09:41 Dose: 81 mg Atorvastatin Calcium (Lipitor -) 40 mg PO HS [facility] Last Admin: 10/10/17 21:30 Dose: 40 mg Enoxaparin Sodium (Lovenox -) 100 mg SQ BID [facility] Last Admin: 10/11/17 09:41 Dose: 100 mg Insulin Aspart (Novolog Vial Sliding Scale -) 1 vial SQ TIDAC [facility]; Protocol Last Admin: 10/11/17 12:29 Dose: 4 units Isosorbide Mononitrate (Imdur -) 30 mg PO DAILY [facility] Last Admin: 10/11/17 09:41 Dose: 30 mg Lisinopril (Prinivil) 10 mg PO DAILY [facility] Last Admin: 10/11/17 09:41 Dose: 10 mg Metoprolol Succinate (Toprol Xl -) 25 mg PO DAILY [facility] Last Admin: 10/11/17 09:41 Dose: 25 mg - Objective Vital Signs: Vital Signs Temperature 98 F 10/11/17 14:25 Pulse Rate 69 10/11/17 14:25 Respiratory Rate 18 10/11/17 14:25 Blood Pressure 123/65 10/11/17 14:25 O2 Sat by Pulse Oximetry (%) 98 10/11/17 11:00 General: Well developed. Obese. No acute distress. Head: Normocephalic. Atraumatic, Eyes: PERRLA, EOMI. Sclerae anicteric. Conjunctivae clear. Neck: Supple. No JVD. No bruits. Heart: Normal S1, S2: Regular rhythm and rate. II/ DAWIT. No gallop or rub. Lungs: Symmetrical air entry. Clear to auscultation. No crackle. No wheezing or rhonchi. Abdomen: Soft. Bowel sound positive. Non tender. No masses. Extremities: Trace to 1+ edema. No clubbing or cyanosis Labs: CBC, BMP 10/10/17 06:53 10/10/17 06:53 INR, PTT INR 0.97 (0.82-1.09) 10/09/17 00:10 Assessment/Plan 77 year-old obese woman with a PMHx of HTN, DM, anemia admitted with chest pain and SOB. ECG showed high lateral - (I and aVL) ischemic changes. Troponin is mildly elevated (0.14) without dynamic changes. 1) Unstable angina: New onset of chest pain with ECG evidence of ischemia and mild elevated troponin. The patient has multiple risk factors of CAD, intermediate to high likelihood of significant CAD. Options of cardiac cath vs conservative medical management were discussed with the patient. She prefers to medical therapy. Continue Lovenox 1 mg/kg q12h for 48 to 72 hours. Continue metoprolol succinate 25 mg daily, Imdur 30 mg daily, atorvastatin 40 mg daily and Lisinopril 10 mg daily. Echocardiogram and Regadenoson nuclear stress Wednesday. 2) SOB with decreased exercise tolerance, possible angina equivalent. She has leg edema and tightness sensation. Start Lasix 40 mg daily for now. Echocardiogram. We will follow the patient with you.
[2017-10-11] MEDS: FUROSEMIDE 40 MG TABLET (FP) PO SCH (17:29)
[2017-10-11] MEDS: ATORVASTATIN CA 40 MG TABLET (FP) PO SCH (22:13)
[2017-10-12] MEDS: INSULIN SLIDING SCALE (NOVOLOG) 1 VIAL SQ SCH ×3 (06:26→17:30)
[2017-10-12] MEDS: ASPIRIN 81 MG CHEWABLE TABLETS PO SCH (09:09)
[2017-10-12] MEDS: FUROSEMIDE 40 MG TABLET (FP) PO SCH (09:09)
[2017-10-12] MEDS: ENOXAPARIN NA (PORCINE) 100 MG/1 ML DISP.SYRIN SQ SCH ×2 (09:09→21:48)
[2017-10-12] MEDS: LISINOPRIL 10 MG TABLET (FP) PO SCH (09:10)
[2017-10-12] MEDS: ISOSORBIDE MONONITRATE 30 MG TAB.SR.24H (FP) PO SCH (09:10)
--- NOTE | 2017-10-12 10:52 | PN ---
Progress Note, Physician History of Present Illness: seen and examined today in [facility]. no overnight events. no new complaints. states she is feeling better. - Current Medication List Current Medications: Active Medications Aspirin (Asa -) 81 mg PO DAILY [facility] Last Admin: 10/12/17 09:09 Dose: 81 mg Atorvastatin Calcium (Lipitor -) 40 mg PO HS [facility] Last Admin: 10/11/17 22:13 Dose: 40 mg Enoxaparin Sodium (Lovenox -) 100 mg SQ BID [facility] Last Admin: 10/12/17 09:09 Dose: 100 mg Furosemide (Lasix -) 40 mg PO DAILY [facility] Last Admin: 10/12/17 09:09 Dose: 40 mg Insulin Aspart (Novolog Vial Sliding Scale -) 1 vial SQ TIDAC [facility]; Protocol Last Admin: 10/12/17 06:26 Dose: Not Given Isosorbide Mononitrate (Imdur -) 30 mg PO DAILY [facility] Last Admin: 10/12/17 09:10 Dose: 30 mg Lisinopril (Prinivil) 10 mg PO DAILY [facility] Last Admin: 10/12/17 09:10 Dose: 10 mg Metoprolol Succinate (Toprol Xl -) 25 mg PO DAILY [facility] Last Admin: 10/11/17 09:41 Dose: 25 mg - Objective Vital Signs: Vital Signs Temperature 98.3 F 10/12/17 01:00 Pulse Rate 66 10/12/17 05:00 Respiratory Rate 18 10/12/17 05:00 Blood Pressure 163/67 10/12/17 05:00 O2 Sat by Pulse Oximetry (%) 97 10/12/17 03:00 Constitutional: Yes: No Distress, Calm, Obese Eyes: Yes: WNL, Conjunctiva Clear, EOM Intact, PERRL HENT: Yes: WNL Neck: Yes: WNL, Supple, Trachea Midline Cardiovascular: Yes: WNL, Regular Rate and Rhythm, S1, S2. No: Bradycardia, Tachycardia, Pulse Irregular, Bruit, JVD, Gallop, Murmur, Rub, S3, S4, Varicosities Respiratory: Yes: Regular, CTA Bilaterally. No: Rales, Rhonchi, Wheezes Gastrointestinal: Yes: WNL, Normal Bowel Sounds, Soft. No: Distention, Tenderness Musculoskeletal: Yes: WNL Extremities: Yes: WNL Edema: No Peripheral Pulses WNL: Yes Peripheral Pulses: Left Doralis Pedis: 2+, Right Dorsalis Pedis: 2+ Integumentary: Yes: WNL Neurological: Yes: WNL, Alert, Oriented Psychiatric: Yes: WNL Labs: CBC, BMP 10/10/17 06:53 10/10/17 06:53 INR, PTT INR 0.97 (0.82-1.09) 10/09/17 00:10 - ....Imaging Chest X-ray: Report Reviewed, Image Reviewed EKG: Report Reviewed, Image Reviewed Other: Report Reviewed, Image Reviewed (tele-nsr, no events recorded) Assessment/Plan Assessment/Plan 77 year-old obese woman with a PMHx of HTN, DM, anemia admitted with chest pain and SOB. ECG showed high lateral - (I and aVL) ischemic changes. Troponin is mildly elevated (0.14) without dynamic changes. 1) Unstable angina: New onset of chest pain with ECG evidence of ischemia and mild elevated troponin. The patient has multiple risk factors of CAD, intermediate to high likelihood of significant CAD. Options of cardiac cath vs conservative medical management were discussed with the patient. She prefers to medical therapy. -troponin did not trend up -no arrhythmias recorded on tele -no further chest pain -can stop full dose Lovenox at this time -plan for Echocardiogram and Regadenoson nuclear stress -cont ASA 81mg daily, metoprolol succinate 25 mg daily, Imdur 30 mg daily, atorvastatin 40 mg daily and Lisinopril 10 mg daily. 2) SOB with decreased exercise tolerance, possible angina equivalent. She has leg edema and tightness sensation. -cont Lasix 40 mg daily for now. -f/up Echocardiogram and stress test
[2017-10-12] MEDS ORDERED: REGADENOSON 0.4 MG/5 ML PRE-FILLED SYRINGE IVPUSH ONE ×2 (12:56→14:30)
--- NOTE | 2017-10-12 15:54 | PN ---
Progress Note, Physician Chief Complaint: AWAKE ALERT AWAIING STRESS TEST RESULTS - Current Medication List Current Medications: Active Medications Aspirin (Asa -) 81 mg PO DAILY [facility] Last Admin: 10/12/17 09:09 Dose: 81 mg Atorvastatin Calcium (Lipitor -) 40 mg PO HS [facility] Last Admin: 10/11/17 22:13 Dose: 40 mg Enoxaparin Sodium (Lovenox -) 100 mg SQ BID [facility] Last Admin: 10/12/17 09:09 Dose: 100 mg Furosemide (Lasix -) 40 mg PO DAILY [facility] Last Admin: 10/12/17 09:09 Dose: 40 mg Insulin Aspart (Novolog Vial Sliding Scale -) 1 vial SQ TIDAC [facility]; Protocol Last Admin: 10/12/17 06:26 Dose: Not Given Isosorbide Mononitrate (Imdur -) 30 mg PO DAILY [facility] Last Admin: 10/12/17 09:10 Dose: 30 mg Lisinopril (Prinivil) 10 mg PO DAILY [facility] Last Admin: 10/12/17 09:10 Dose: 10 mg Metoprolol Succinate (Toprol Xl -) 25 mg PO DAILY [facility] Last Admin: 10/11/17 09:41 Dose: 25 mg - Objective Vital Signs: Vital Signs Temperature 97.6 F 10/12/17 14:58 Pulse Rate 66 10/12/17 14:58 Respiratory Rate 18 10/12/17 14:58 Blood Pressure 164/69 10/12/17 14:58 O2 Sat by Pulse Oximetry (%) 97 10/12/17 03:00 Constitutional: Yes: Mild Distress Eyes: Yes: WNL HENT: Yes: WNL Neck: Yes: WNL Cardiovascular: Yes: WNL Respiratory: Yes: WNL Gastrointestinal: Yes: WNL Genitourinary: Yes: WNL Musculoskeletal: Yes: WNL Extremities: Yes: WNL Edema: No Peripheral Pulses WNL: Yes Wound/Incision: Yes: Clean/Dry Neurological: Yes: WNL ...Motor Strength: WNL Psychiatric: Yes: WNL Labs: CBC, BMP 10/10/17 06:53 10/10/17 06:53 INR, PTT INR 0.97 (0.82-1.09) 10/09/17 00:10 Problem List - Problems (1) Anemia Code(s): D64.9 - ANEMIA, UNSPECIFIED (2) Chest pain Code(s): R07.9 - CHEST PAIN, UNSPECIFIED Qualifiers: Chest pain type: unspecified Qualified Code(s): R07.9 - Chest pain, unspecified (3) HTN (hypertension) Code(s): I10 - ESSENTIAL (PRIMARY) HYPERTENSION (4) Renal insufficiency Code(s): N28.9 - DISORDER OF KIDNEY AND URETER, UNSPECIFIED (5) Diabetes Code(s): E11.9 - TYPE 2 DIABETES MELLITUS WITHOUT COMPLICATIONS Assessment/Plan AWAIT STRESS TEST RESULTS LIPID PANEL ON LIPITOR/ASA CARDIAC WORKUP ON TELE NO [facility]ARMS OOB TO CHAIR
[2017-10-12] MEDS: ATORVASTATIN CA 40 MG TABLET (FP) PO SCH (21:48)
[2017-10-13] MEDS: INSULIN SLIDING SCALE (NOVOLOG) 1 VIAL SQ SCH ×2 (06:16→11:52)
[2017-10-13 07:13] LABS: HEMATOCRIT 33.7 % (32.4-45.2); HEMOGLOBIN 11.1 GM/dL (10.7-15.3); MCH 26.9 pg (25.7-33.7); MCHC 33.1 g/dl (32.0-36.0); MEAN CELL VOLUME 81.3 fl (80-96); MEAN PLT VOLUME 10.1 fl (7.5-11.1); PLATELET COUNT 155 K/MM3 (134-434); RBC 4.14 M/mm3 (3.60-5.2); RDW 13.1 % (11.6-15.6); WHITE BLOOD COUNT 6.4 K/mm3 (4.0-10.0)
[2017-10-13 07:32] LABS: ANION GAP 6 (8-16); BLOOD UREA NITROGEN 19 mg/dL (7-18); CALCIUM 8.6 mg/dL (8.5-10.1); CHLORIDE 105 mmol/L (98-107); CO2 27 mmol/L (21-32); CREATININE 1.5 mg/dL (0.55-1.02); GLUCOSE,RANDOM 189 mg/dL (74-106); MAGNESIUM 2.1 mg/dL (1.8-2.4); POTASSIUM 4.4 mmol/L (3.5-5.1); SODIUM 138 mmol/L (136-145)
[2017-10-13] MEDS: FUROSEMIDE 40 MG TABLET (FP) PO SCH (09:45)
[2017-10-13] MEDS: metoPROLOL SUCCINATE 25 MG TAB.SR.24H (FP) PO SCH (09:45)
[2017-10-13] MEDS: ENOXAPARIN NA (PORCINE) 100 MG/1 ML DISP.SYRIN SQ SCH (09:45)
[2017-10-13] MEDS: LISINOPRIL 10 MG TABLET (FP) PO SCH (09:45)
[2017-10-13] MEDS: ISOSORBIDE MONONITRATE 30 MG TAB.SR.24H (FP) PO SCH (09:45)
[2017-10-13] MEDS: ASPIRIN 81 MG CHEWABLE TABLETS PO SCH (09:45)
--- NOTE | 2017-10-13 10:03 | DS ---
Physical Examination Vital Signs: Vital Signs Temperature 98.3 F 10/13/17 05:00 Pulse Rate 65 10/13/17 05:00 Respiratory Rate 18 10/13/17 05:00 Blood Pressure 137/53 10/13/17 05:00 O2 Sat by Pulse Oximetry (%) 99 10/13/17 03:00 Constitutional: Yes: No Distress Eyes: Yes: WNL HENT: Yes: WNL Neck: Yes: WNL Cardiovascular: Yes: WNL Respiratory: Yes: WNL Gastrointestinal: Yes: WNL Renal/: Yes: WNL Musculoskeletal: Yes: Muscle Pain Extremities: Yes: WNL Edema: No Peripheral Pulses: Right Dorsalis Pedis: 1+ Integumentary: Yes: WNL Wound/Incision: Yes: Clean/Dry Neurological: Yes: WNL ...Motor Strength: WNL Psychiatric: Yes: WNL Labs: CBC, BMP 10/13/17 06:45 10/13/17 06:45 Discharge Summary Reason For Visit: CHEST PAIN Current Active Problems Anemia (Acute) Chest pain (Acute) HTN (hypertension) (Acute) Renal insufficiency (Acute) Procedures: Principal: stress test Hospital Course: cardiac workup, syress test negative, will need peripheral vasc workup for poor pedal pulses circulation Condition: Stable - Instructions Diet, Activity, Other Instructions: ada/low sodium vasc sx consult and f/u as outpatient Dr Don Maya Referrals: Josef Fishman MD [Primary Care Provider] - Disposition: VNS/HOME HEALTH CARE - Home Medications Comprehensive Discharge Medication List: Ambulatory Orders Saxagliptin HCl [Onglyza] 5 mg PO DAILY 01/01/16 Lisinopril [Zestril] 30 mg PO DAILY 10/08/17 Aspirin [ASA -] 81 mg PO DAILY #30 tab.chew 10/13/17 Atorvastatin Ca [Lipitor] 40 mg PO HS #30 tablet 10/13/17 Furosemide [Lasix -] 40 mg PO DAILY #30 tablet 10/13/17 Isosorbide Mononitrate [Imdur -] 30 mg PO DAILY #30 tab.sr.24h 10/13/17 Lisinopril [Prinivil] 10 mg PO DAILY tablet 10/13/17 Metoprolol Succinate [Toprol XL -] 25 mg PO DAILY #30 tab.sr.24h 10/13/17
[2017-10-13 13:56] VITALS: BP 127/61; PULSE 68; TEMP 99.8
--- NOTE | 2017-10-13 16:16 | PN ---
Progress Note (short form) - Note Progress Note: Vascular Surgery: Pt admitted to the hospital with SOB/CP. She currently denies any SOB. She states that her legs have been swollen and improved with medications/leg elevation. She was having some pain to her anterior shins. The patient has a h/ o of DM, no h/o of chronic wound to her LE. She ambulates with a cane and denies any clarification symptoms with ambulating. PMHX: HTN, DM, anemia PSHX: thyroidectomy Vital Signs Period Temp Pulse Resp BP Sys/Troy Pulse Ox Last 24 Hr 98.0 F-99.8 F 64-70 18-20 127-152/52-66 99-100 GEN: A&0x3, NAD LE: feet warm to touch b/l with palpable Left PT/DP pulse. No ulcerations/skin breakdown. No pitting edema. Good signals DP/PT with doppler on b/l feet. Vascular study 10/12: no evidence of DVT to b/l LE. A/p: 77 yo female without evidence of LE edema/DVT or PAD D/w Dr. Maya no surgical intervention needed, may f/u in the wound clinic as needed. Medical management of LE edema and elevate LE to decrease edema.
== END 2017-10-13 14:13 | disposition home health service (06) ==
LOC: JER 16:38 → JERBED 18:57 → J4W 21:00
PROVIDERS: ADMIT Internal Medicine; ATTEND Family Medicine
PROC: 3E033GC Introduction of Other Therapeutic Substance into Peripheral Vein, Percutaneous Approach (ICD-10-PCS; principal; 2017-10-08)
PROC: 3E013VG Introduction of Insulin into Subcutaneous Tissue, Percutaneous Approach (ICD-10-PCS; 2017-10-08)
DX: I20.0 Unstable angina (principal); R07.9 Chest pain, unspecified; E11.22 Type 2 diabetes mellitus with diabetic chronic kidney disease; E11.65 Type 2 diabetes mellitus with hyperglycemia; I12.9 Hypertensive chronic kidney disease with stage 1 through stage 4 chronic kidney disease, or unspecified chronic kidney disease; N18.3 Chronic kidney disease, stage 3 (moderate); Z79.4 Long term (current) use of insulin; D64.9 Anemia, unspecified; E66.9 Obesity, unspecified; Z68.35 Body mass index [BMI] 35.0-35.9, adult
CPT/HCPCS: 36415; 71045-TC-FY; 78452-TC; 80048; 80053; 81003; 81015; 82550; 82553; 82962; 83036; 83735; 83880; 84100; 84484; 85025; 85027; 85610; 87086; 93005; 93010; 93017; 93306-TC; 93970-TC; 96372; 96374; 99283-25; A9502; G0378; J2785

== ENCOUNTER 2018-11-25 11:29 | Inpatient (IN) | payer MEDICARE, OTHER ==
[2018-11-25] MEDS ORDERED: LISINOPRIL 10 MG TABLET (FP) PO ONE (12:35)
[2018-11-25] MEDS ORDERED: LISINOPRIL 5 MG TABLET (FP) ONE (12:48)
--- NOTE | 2018-11-25 14:11 | PDOC ---
Documentation entered by Joel Kevin SCRIBE, acting as scribe for Benny Mar MD. Benny Mar MD: This documentation has been prepared by the Herberth snider Joel, SCRIBE, under my direction and personally reviewed by me in its entirety. I confirm that the documentation accurately reflects all work, treatment, procedures, and medical decision making performed by me. History of Present Illness - General Chief Complaint: Blood Pressure Problem Stated Complaint: SENT BY PCP Time Seen by Provider: 11/25/18 11:49 History Source: Patient Exam Limitations: No Limitations - History of Present Illness Initial Comments: 11/25/18 12:50 The patient is a 78 year old female with a significant PMH of HTN, DM, hyperlipidemia who presents to the emergency department for evaluation of elevated blood pressure and left facial numbness. The patient notes experiencing left facial numbness over the past few days. Pt also notes numbness in her L arm but denies any weakness in any extremity. No facial droop. No slurred speech. Denies CLOUD/N/V. Pt states that her BP has been elevated for several days because she has not been taking her BP meds. 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 She reports going to [facility] today and was referred to the ER for eval. The patient denies chest pain and shortness of breath. Denies fever, chills, nausea, vomit, diarrhea and constipation. Denies dysuria, frequency, urgency and hematuria. Allergies: NKA Past surgical history: None reported. Social history: No reported cigarette, alcohol, or drug use. Prior PCP: Dr. iFshman Cardio: Dr. Browning NIH Stroke Scale - Last Known Well Date/Time & Onset Date Last Known Well: 11/22/18 Time Last Known Well: 22:00 - Initial Evaluation Level of consciousness: Alert Ask patient the month and their age: Answers both correctly Ask patient to open & close eyes; make fist and let go: Obeys both correctly Best gaze (horizontal eye movement): Normal Visual field testing: No visual field loss Facial paresis (Show teeth/raise eyebrows/close eyes tight): Normal symmetrical movement Motor Function: Left Arm: Normal Motor Function: Right Arm: Normal (extends arm 90 (or 45) degrees for 10 seconds without drift Motor Function: Left Leg: Normal (extends leg 30 degrees for 5 seconds without drift) Motor Function: Right Leg: Normal (extends leg 30 degrees for 5 seconds without drift) Limb Ataxia: No ataxia Sensory(Use pinprick test arms,legs,trunk,face/side to side): Mild to moderate decrease in sensation Best language (Describe picture, name items, read sentences): No Aphasia Dysarthria (read several words): Normal articulation Extinction and Inattention: No abnormality - Total Score NIH Stroke Scale Score: 1 Past History - Past Medical History Allergies/Adverse Reactions: Allergies Allergy/AdvReac Type Severity Reaction Status Date / Time No Known Drug Allergies Allergy Verified 11/25/18 11:35 acetaminophen [From Percocet] AdvReac Mild Verified 11/25/18 11:35 oxycodone [From Percocet] AdvReac Mild Verified 11/25/18 11:35 Home Medications: Ambulatory Orders Aspirin [ASA -] 81 mg PO DAILY #30 tab.chew 10/13/17 Linaclotide [Linzess] 145 mcg PO DAILY 11/25/18 Linagliptin [Tradjenta] 5 mg PO DAILY 11/25/18 Rosuvastatin [Crestor -] 20 mg PO HS 11/25/18 Anemia: Yes Asthma: No Cancer: No Cardiac Disorders: No CVA: No COPD: No CHF: No Dementia: No Diabetes: Yes GI Disorders: Yes Disorders: No HTN: Yes Hypercholesterolemia: No Liver Disease: No Seizures: No Thyroid Disease: No - Surgical History Abdominal Surgery: No Appendectomy: No Cardiac Surgery: No Cholecystectomy: No Lung Surgery: No Neurologic Surgery: No Orthopedic Surgery: No - Immunization History Immunization Up to Date: Yes - Suicide/Smoking/Psychosocial Hx Smoking Status: No Smoking History: Never smoked Have you smoked in the past 12 months: No Number of Cigarettes Smoked Daily: 0 Hx Alcohol Use: No Drug/Substance Use Hx: No Substance Use Type: None Hx Substance Use Treatment: No Review of Systems - Review of Systems Able to Perform ROS?: Yes Comments:: 11/25/18 12:32 GENERAL/CONSTITUTIONAL: No fever or chills. No weakness. HEAD, EYES, EARS, NOSE AND THROAT: No change in vision. No ear pain or discharge. No sore throat. CARDIOVASCULAR: No chest pain, no shortness of breath, no loss of consciousness RESPIRATORY: No cough, wheezing, or hemoptysis. GASTROINTESTINAL: No nausea, vomiting, diarrhea or constipation. GENITOURINARY: No dysuria, frequency, or change in urination. MUSCULOSKELETAL: No joint or muscle swelling or pain. No neck or back pain. SKIN: No rash NEUROLOGIC: (+) Left facial numbness. No vertigo, no change in strength. ENDOCRINE: No increased thirst. No abnormal weight change. HEMATOLOGIC/LYMPHATIC: No anemia, easy bleeding, or history of blood clots. ALLERGIC/IMMUNOLOGIC: No hives or skin allergy. *Physical Exam - Vital Signs Last Vital Signs Temp Pulse Resp BP Pulse Ox 98.2 F 57 L 16 196/57 H 100 11/25/18 11:31 11/25/18 11:31 11/25/18 11:31 11/25/18 11:31 11/25/18 11:31 - Physical Exam Comments: 11/25/18 12:33 GENERAL: Awake, alert, and fully oriented, in no acute distress. HEAD: No signs of trauma EYES: PERRLA, EOMI, sclera anicteric, conjunctiva clear ENT: Auricles normal inspection, hearing grossly normal, nares patent, oropharynx clear without exudates. Moist mucosa NECK: Nontender, no stepoffs, Normal ROM, supple, no lymphadenopathy, JVD, or masses LUNGS: Breath sounds equal, clear to auscultation bilaterally. No wheezes, and no crackles HEART: Regular rate and rhythm, normal S1 and S2, no murmurs, rubs or gallops ABDOMEN: Soft, nontender, normoactive bowel sounds. No guarding, no rebound. No masses EXTREMITIES: Normal range of motion, no edema. No clubbing or cyanosis. No cords , erythema, or tenderness NEUROLOGICAL: Cranial nerves II through XII intact. + diminished sensation in L face and LUE, 5/5 strength and sensation in all other extremities, Normal speech , normal gait, normal cerebellar function SKIN: Warm, Dry, normal turgor, no rashes or lesions noted. Heart Score/ECG Review - ECG Impressions Comment:: 11/25/18 14:00 NSR, no JULIANA/STDs, TWI in I and aVL, axis wnl, intervals wnl, rate 53 ED Treatment Course - LABORATORY CBC & Chemistry Diagram: 11/26/18 05:20 11/26/18 06:00 - RADIOLOGY Radiology Studies Ordered: Category Date Time Status HEAD CT (STROKE) [CT] Stat CT Scan 11/25/18 12:26 Ordered Medical Decision Making - Critical Care Time Total Critical Care Time (minutes): 60 Critical Care Statement: The care of this patient involved high complexity decision making to prevent further life threatening deterioration of the patient 's condition and/or to evaluate & treat vital organ system(s) failure or risk of failure. - Medical Decision Making 11/25/18 14:09 78 F with L facial and LUE numbness and elevated BP. Pt with NIHSS 1, last known normal was 3 days ago. No indication for TPA at this time. - Labs - CT head - Neuro c/s 11/25/18 15:21 CT head unremarkable Spoke with Dr. Bal, who recommends MRI given pt's risk factors for CVA. 11/25/18 16:04 UA consistent with UTI. Will start ceftriaxone 11/25/18 16:39 Labs with mild troponinemia 0.09. EKG with no ischemic changes. Pt denies chest pain. BP improved after home dose of lisinopril but still elevated Will give metoprolol 25mg PO Pt also given aspirin and statin 11/25/18 17:42 Pt admitted to hospitalist *DC/Admit/Observation/Transfer Diagnosis at time of Disposition: Numbness and tingling, HTN (hypertension) - Discharge Dispostion Decision to Admit order: Yes - Referrals - Patient Instructions - Post Discharge Activity - Attestations Physician Attestion: 11/25/18 17:43 I, Dr. Benny Mar MD, attest that this document has been prepared under my direction and personally reviewed by me in its entirety. I further attest, that it accurately reflects all work, treatment, procedures and medical decision -making performed by me.
[2018-11-25 14:38] LABS: HYALINE CASTS 0 /lpf (0-8); PH,URINE 6.5 (5.0-8.0); URINE APPEARANCE CLEAR; URINE BACTERIA 5443.2 /hpf (NEGATIVE); URINE BILIRUBIN NEGATIVE (NEGATIVE); URINE COLOR YELLOW; URINE GLUCOSE (UA) NEGATIVE (NEGATIVE); URINE KETONE NEGATIVE (NEGATIVE); URINE LEUK ESTERASE 2+ (NEGATIVE); URINE NITRITE POSITIVE (NEGATIVE); URINE PROTEIN NEGATIVE (NEGATIVE); URINE UROBILINOGEN 0.2 mg/dL (0.2-1.0); URINE WBC 10 /hpf (0-5)
[2018-11-25 15:09] LABS: URINE RBC 9.1 /hpf (0-4)
[2018-11-25 15:55] LABS: BASO % 0.6 % (0-2.0); EOS % 3.7 % (0-4.5); HEMATOCRIT 33.1 % (32.4-45.2); HEMOGLOBIN 10.7 GM/dL (10.7-15.3); LYMPH % 49.9 % (8-40); MCH 26.9 pg (25.7-33.7); MCHC 32.4 g/dl (32.0-36.0); MEAN CELL VOLUME 82.9 fl (80-96); MEAN PLT VOLUME 11.1 fl (7.5-11.1); NEUT % 38.8 % (42.8-82.8); PLATELET COUNT 145 K/MM3 (134-434); RBC 3.99 M/mm3 (3.60-5.2); RDW 13.1 % (11.6-15.6); WHITE BLOOD COUNT 6.3 K/mm3 (4.0-10.0)
[2018-11-25] MEDS ORDERED: CEFTRIAXONE 1,000 MG in DEXTROSE 5%-WATER - 50 ML IVPB ONE (16:03)
[2018-11-25 16:24] LABS: ALBUMIN 3.8 g/dl (3.4-5.0); BILIRUBIN,TOTAL 0.8 mg/dL (0.2-1); BLOOD UREA NITROGEN 10.9 mg/dL (7-18); CALCIUM 8.9 mg/dL (8.5-10.1); CREATININE 1.3 mg/dL (0.55-1.3); POTASSIUM 4.4 mmol/L (3.5-5.1); TOT PROT 7.7 g/dl (6.4-8.2)
[2018-11-25] MEDS ORDERED: CEFTRIAXONE 1 GM/50 ML BAG ONE (16:24)
[2018-11-25 16:25] LABS: INR 1.08 (0.83-1.09); PROTHROMBIN TIME (PATIENT) 12.8 SEC (9.7-13.0)
[2018-11-25] MEDS ORDERED: ASPIRIN 325 MG TABLET PO ONE (16:36)
[2018-11-25] MEDS ORDERED: ATORVASTATIN CA 80 MG TABLET (FP) PO ONE (16:39)
[2018-11-25] MEDS ORDERED: METOPROLOL TARTRATE 25 MG TABLET (FP) PO ONE (16:39)
[2018-11-25] MEDS ORDERED: ASPIRIN 325 MG TABLET ONE (17:09)
[2018-11-25] MEDS ORDERED: METOPROLOL TARTRATE 25 MG TABLET (FP) ONE (17:09)
[2018-11-25] MEDS ORDERED: ATORVASTATIN CA 80 MG TABLET (FP) ONE (17:09)
--- NOTE | 2018-11-25 17:38 | HP ---
CHIEF COMPLAINT: left facial numbness PCP:Dr. Fishman HISTORY OF PRESENT ILLNESS: 78 year old woman came to hospital complaining of left facial and left upper extremity numbness which she has experiences for the last 3 days. Denied any focal weakness. Denied facial droop or slurred speech. Pt states that her BP has been elevated for several days because she has not been taking her BP meds. NIH stroke scale was 1 in ER. ER course was notable for: (1) head CT (2) ekg (3) Recent Travel: PAST MEDICAL HISTORY: HTN, DM, hyperlipidemia PAST SURGICAL HISTORY:no Social History: Smoking:no Alcohol:no Drugs: no Family History: Allergies No Known Drug Allergies Allergy (Verified 11/25/18 11:35) acetaminophen [From Percocet] Adverse Reaction (Mild, Verified 11/25/18 11:35) oxycodone [From Percocet] Adverse Reaction (Mild, Verified 11/25/18 11:35) HOME MEDICATIONS: Home Medications Medication Instructions Recorded Aspirin [ASA -] 81 mg PO DAILY #30 tab.chew 10/13/17 Linaclotide [Linzess] 145 mcg PO DAILY 11/25/18 Linagliptin [Tradjenta] 5 mg PO DAILY 11/25/18 Rosuvastatin [Crestor -] 20 mg PO HS 11/25/18 REVIEW OF SYSTEMS CONSTITUTIONAL: Absent: fever, chills, diaphoresis, generalized weakness, malaise, loss of appetite, weight change HEENT: Absent: rhinorrhea, nasal congestion, throat pain, throat swelling, difficulty swallowing, mouth swelling, ear pain, eye pain, visual changes CARDIOVASCULAR: Absent: chest pain, syncope, palpitations, irregular heart rate, lightheadedness , peripheral edema RESPIRATORY: Absent: cough, shortness of breath, dyspnea with exertion, orthopnea, wheezing, stridor, hemoptysis GASTROINTESTINAL: Absent: abdominal pain, abdominal distension, nausea, vomiting, diarrhea, constipation, melena, hematochezia GENITOURINARY: Absent: dysuria, frequency, urgency, hesitancy, hematuria, flank pain, genital pain MUSCULOSKELETAL: Absent: myalgia, arthralgia, joint swelling, back pain, neck pain SKIN: Absent: rash, itching, pallor HEMATOLOGIC/IMMUNOLOGIC: Absent: easy bleeding, easy bruising, lymphadenopathy, frequent infections ENDOCRINE: Absent: unexplained weight gain, unexplained weight loss, heat intolerance, cold intolerance NEUROLOGIC: Absent: headache, focal weakness or paresthesias, dizziness, unsteady gait, seizure, mental status changes, bladder or bowel incontinence present- focal numbness on left face, left upper ext PSYCHIATRIC: Absent: anxiety, depression, suicidal or homicidal ideation, hallucinations. PHYSICAL EXAMINATION Vital Signs - 24 hr 11/25/18 11/25/18 11/25/18 11:31 15:05 17:13 Temperature 98.2 F 98.1 F Pulse Rate 57 L Pulse Rate [ 57 L 62 Right Radial] Respiratory 16 18 16 Rate Blood Pressure 196/57 H Blood Pressure 185/71 H 151/69 [Left Arm] O2 Sat by Pulse 100 97 98 Oximetry (%) GENERAL: Awake, alert, and fully oriented, in no acute distress. HEAD: Normal with no signs of trauma. EYES: Pupils equal, round and reactive to light, extraocular movements intact, sclera anicteric, conjunctiva clear. No lid lag. EARS, NOSE, THROAT: Ears normal, nares patent, oropharynx clear without exudates. Moist mucous membranes. NECK: Normal range of motion, supple without lymphadenopathy, JVD, or masses. LUNGS: Breath sounds equal, clear to auscultation bilaterally. No wheezes, and no crackles. No accessory muscle use. HEART: Regular rate and rhythm, normal S1 and S2 without murmur, rub or gallop. ABDOMEN: Soft, nontender, not distended, normoactive bowel sounds, no guarding, no rebound, no masses. MUSCULOSKELETAL: Normal range of motion at all joints. No bony deformities or tenderness. No CVA tenderness. UPPER EXTREMITIES: 2+ pulses, warm, well-perfused. No cyanosis. No clubbing. No peripheral edema. LOWER EXTREMITIES: 2+ pulses, warm, well-perfused. No calf tenderness. No peripheral edema. NEUROLOGICAL: Cranial nerves II-XII intact. Normal speech. Normal gait. PSYCHIATRIC: Cooperative. Good eye contact. Appropriate mood and affect. SKIN: Warm, dry, normal turgor, no rashes or lesions noted, normal capillary refill. Laboratory Results - last 24 hr 11/25/18 11/25/18 11/25/18 14:14 15:15 15:15 WBC 6.3 RBC 3.99 Hgb 10.7 Hct 33.1 MCV 82.9 MCH 26.9 MCHC 32.4 RDW 13.1 Plt Count 145 MPV 11.1 Absolute Neuts (auto) 2.5 Neutrophils % 38.8 L Lymphocytes % 49.9 H Monocytes % 7.0 Eosinophils % 3.7 Basophils % 0.6 Nucleated RBC % 0 PT with INR 12.80 INR 1.08 Sodium Potassium Chloride Carbon Dioxide Anion Gap BUN Creatinine Est GFR (CKD-EPI)AfAm Est GFR (CKD-EPI)NonAf Random Glucose Calcium Total Bilirubin AST ALT Alkaline Phosphatase Creatine Kinase Troponin I Total Protein Albumin Triglycerides Cholesterol Total LDL Cholesterol HDL Cholesterol Urine Color Yellow Urine Appearance Clear Urine pH 6.5 D Ur Specific Pace 1.011 Urine Protein Negative Urine Glucose (UA) Negative Urine Ketones Negative Urine Blood Trace Urine Nitrite Positive H Urine Bilirubin Negative Urine Urobilinogen 0.2 Ur Leukocyte Esterase 2+ H Urine WBC (Auto) 10 Urine RBC (Auto) 9.1 Urine Casts (Auto) 0 U Epithel Cells (Auto) 2.0 Urine Bacteria (Auto) 5443.2 Blood Type Antibody Screen 11/25/18 11/25/18 15:15 15:15 WBC RBC Hgb Hct MCV MCH MCHC RDW Plt Count MPV Absolute Neuts (auto) Neutrophils % Lymphocytes % Monocytes % Eosinophils % Basophils % Nucleated RBC % PT with INR INR Sodium 143 Potassium 4.4 Chloride 106 Carbon Dioxide 30 Anion Gap 6 L BUN 10.9 Creatinine 1.3 Est GFR (CKD-EPI)AfAm 45.50 Est GFR (CKD-EPI)NonAf 39.26 Random Glucose 127 H Calcium 8.9 Total Bilirubin 0.8 AST 13 L ALT 18 Alkaline Phosphatase 128 H Creatine Kinase 132 Troponin I 0.09 H Total Protein 7.7 Albumin 3.8 Triglycerides 92 Cholesterol 116 Total LDL Cholesterol 73 HDL Cholesterol 35 L Urine Color Urine Appearance Urine pH Ur Specific Pace Urine Protein Urine Glucose (UA) Urine Ketones Urine Blood Urine Nitrite Urine Bilirubin Urine Urobilinogen Ur Leukocyte Esterase Urine WBC (Auto) Urine RBC (Auto) Urine Casts (Auto) U Epithel Cells (Auto) Urine Bacteria (Auto) Blood Type O POSITIVE Antibody Screen Negative Imaging reviewed ASSESSMENT/PLAN: #R/o CVA - focal neuro symptoms appreciated -admit to telemetry -NPO -neuro consults -brain MRI -Neck/brain MRA -echo -carotid duplex -speech and swallow consult -pt eval -BGM -high dose statin -ASA #DM -novolof sliding scale -a1c #HTN - uncontrolled -salt restriction -lisinopril 20mg po daily -monitor vs closely DVT ppx- heparin sc Visit type - Emergency Visit Emergency Visit: Yes Care time: The patient presented to the Emergency Department on the above date and was hospitalized for further evaluation of their emergent condition. - New Patient This patient is new to me today: Yes Date on this admission: 11/25/18 - Critical Care Critical Care patient: No
[2018-11-25] MEDS ORDERED: ATORVASTATIN CA 40 MG TABLET (FP) PO SCH (22:00)
[2018-11-25] MEDS ORDERED: ATORVASTATIN CA 40 MG TABLET (FP) ONE (22:43)
[2018-11-25] MEDS ORDERED: LORazepam 2 MG/ML SDV VIAL IM ONE (22:46)
[2018-11-25] MEDS: INSULIN SLIDING SCALE (NOVOLOG) 1 VIAL SQ SCH (22:57)
[2018-11-26 06:30] LABS: BASO % 0.4 % (0-2.0); EOS % 3.8 % (0-4.5); HEMATOCRIT 32.3 % (32.4-45.2); HEMOGLOBIN 10.5 GM/dL (10.7-15.3); LYMPH % 42.4 % (8-40); MCH 26.9 pg (25.7-33.7); MCHC 32.6 g/dl (32.0-36.0); MEAN CELL VOLUME 82.4 fl (80-96); MEAN PLT VOLUME 11.2 fl (7.5-11.1); NEUT % 44.4 % (42.8-82.8); PLATELET COUNT 137 K/MM3 (134-434); RBC 3.92 M/mm3 (3.60-5.2); RDW 13.3 % (11.6-15.6); WHITE BLOOD COUNT 6.2 K/mm3 (4.0-10.0)
[2018-11-26 06:41] LABS: BLOOD UREA NITROGEN 12.5 mg/dL (7-18); CALCIUM 8.4 mg/dL (8.5-10.1); CREATININE 1.2 mg/dL (0.55-1.3); POTASSIUM 3.6 mmol/L (3.5-5.1)
[2018-11-26] MEDS: INSULIN SLIDING SCALE (NOVOLOG) 1 VIAL SQ SCH ×4 (06:47→22:11)
--- NOTE | 2018-11-26 08:15 | EKG ---
Test Reason : Blood Pressure : / mmHG Vent. Rate : 053 BPM Atrial Rate : 053 BPM P-R Int : 200 ms QRS Dur : 106 ms QT Int : 456 ms P-R-T Axes : 095 030 099 degrees QTc Int : 427 ms SINUS BRADYCARDIA T WAVE ABNORMALITY, CONSIDER LATERAL ISCHEMIA ABNORMAL ECG WHEN COMPARED WITH ECG OF 08-OCT-2017 22:23, NO SIGNIFICANT CHANGE WAS FOUND Confirmed by DARRELL OCONNOR, HOLLIE ([id number]) on 11/26/2018 8:14:41 AM Referred By: Confirmed By:HOLLIE RAMÍREZ MD
--- NOTE | 2018-11-26 08:26 | PN ---
Progress Note, Physician Chief Complaint: L facial numbness HTN History of Present Illness: Previous notes and events reviewed awake and alert NAD complain of numb/tingle to L side of mouth no facial droop or slurred speech noted complain of constipation since not taking Linzess - Current Medication List Current Medications: Active Medications Aspirin (Asa -) 81 mg PO DAILY [facility] Atorvastatin Calcium (Lipitor -) 40 mg PO HS [facility] Last Admin: 11/25/18 22:58 Dose: 40 mg Insulin Aspart (Novolog Vial Sliding Scale -) 1 vial SQ ACHS [facility]; Protocol Last Admin: 11/26/18 06:47 Dose: Not Given Lisinopril (Prinivil) 20 mg PO DAILY [facility] Rosuvastatin Calcium (Crestor -) 20 mg PO HS [facility] - Objective Vital Signs: Vital Signs Temperature 98.1 F 11/25/18 17:13 Pulse Rate 56 L 11/26/18 06:45 Respiratory Rate 16 11/26/18 06:45 Blood Pressure 167/70 11/26/18 06:45 O2 Sat by Pulse Oximetry (%) 97 11/26/18 06:45 Constitutional: Yes: No Distress, Calm, Obese Eyes: Yes: Conjunctiva Clear HENT: Yes: Atraumatic Cardiovascular: Yes: Regular Rate and Rhythm Respiratory: Yes: Regular, CTA Bilaterally Gastrointestinal: Yes: Normal Bowel Sounds, Soft, Abdomen, Obese Musculoskeletal: Yes: Muscle Weakness Extremities: Yes: WNL Edema: No Neurological: Yes: Alert, Oriented, Numbness (L side facial numbness) Psychiatric: Yes: Alert, Oriented Labs: CBC, BMP 11/26/18 05:20 11/26/18 06:00 INR, PTT INR 1.08 (0.83-1.09) 11/25/18 15:15 - ....Imaging Cat Scan: Report Reviewed Ultrasound: Report Reviewed EKG: Report Reviewed Problem List - Problems (1) HTN (hypertension) Assessment/Plan: -Lisinopril daily -low Na diet -Cardiology consult Code(s): I10 - ESSENTIAL (PRIMARY) HYPERTENSION (2) Numbness and tingling Assessment/Plan: -Neurology consult -neuro checks -Head CT scan shows no significant interval change or CT evidence of acute intracranial pathology is identified -Carotid Doppler mild atherosclerotic disease with no evidence of hemodynamically significant stenosis -fall precaution -[employer] 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
[2018-11-26] MEDS: LISINOPRIL 20 MG TABLET (FP) PO SCH (11:42)
[2018-11-26] MEDS: ASPIRIN 81 MG CHEWABLE TABLETS PO SCH (11:42)
--- NOTE | 2018-11-26 11:43 | CON.NEURO ---
Consult - History of Present Illness History of Present Illness: 78 year old woman came to hospital complaining of left facial and left upper extremity numbness which she has experiences for the last 4 days. (11/22/18) Denied any focal weakness. Pt states that her BP has been elevated for several days because she has not been taking her BP meds. using wlaker at baseline; no focal c/o denies slurred speech or swallowing c/o. HD CT IMPRESSION: No significant interval change or CT evidence of acute intracranial pathology is identified. Correlate clinically to determine further evaluation and follow-up. - Past Medical History Cardio/Vascular: Yes: HTN, Hyperlipdemia - Alcohol/Substance Use Hx Alcohol Use: No - Smoking History Smoking history: Never smoked Have you smoked in the past 12 months: No Aproximately how many cigarettes per day: 0 Home Medications - Allergies Allergies/Adverse Reactions: Allergies Allergy/AdvReac Type Severity Reaction Status Date / Time No Known Drug Allergies Allergy Verified 11/25/18 11:35 acetaminophen [From Percocet] AdvReac Mild Verified 11/25/18 11:35 oxycodone [From Percocet] AdvReac Mild Verified 11/25/18 11:35 - Home Medications Home Medications: Ambulatory Orders Aspirin [ASA -] 81 mg PO DAILY #30 tab.chew 10/13/17 Linaclotide [Linzess] 145 mcg PO DAILY 11/25/18 Linagliptin [Tradjenta] 5 mg PO DAILY 11/25/18 Rosuvastatin [Crestor -] 20 mg PO HS 11/25/18 Physical Exam-Neuro Vital Signs: Vital Signs Temperature 98.1 F 11/25/18 17:13 Pulse Rate 56 L 11/26/18 06:45 Respiratory Rate 16 11/26/18 06:45 Blood Pressure 167/70 11/26/18 06:45 O2 Sat by Pulse Oximetry (%) 97 11/26/18 06:45 Labs: CBC, BMP 11/26/18 05:20 11/26/18 06:00 INR, PTT INR 1.08 (0.83-1.09) 11/25/18 15:15 NIH Stroke Scale - Last Known Well Date/Time & Onset Date Last Known Well: 11/22/18 - Initial Evaluation Level of consciousness: Alert Ask patient the month and their age: Answers both correctly Ask patient to open & close eyes; make fist and let go: Obeys both correctly Best gaze (horizontal eye movement): Normal Visual field testing: No visual field loss Facial paresis (Show teeth/raise eyebrows/close eyes tight): Normal symmetrical movement Motor Function: Left Arm: Normal Motor Function: Right Arm: Normal (extends arm 90 (or 45) degrees for 10 seconds without drift Motor Function: Left Leg: Normal (extends leg 30 degrees for 5 seconds without drift) Motor Function: Right Leg: Normal (extends leg 30 degrees for 5 seconds without drift) Limb Ataxia: No ataxia Sensory(Use pinprick test arms,legs,trunk,face/side to side): Mild to moderate decrease in sensation Best language (Describe picture, name items, read sentences): No Aphasia Dysarthria (read several words): Normal articulation Extinction and Inattention: No abnormality - Total Score NIH Stroke Scale Score: 1 Problem List - Problems (1) HTN (hypertension) Code(s): I10 - ESSENTIAL (PRIMARY) HYPERTENSION (2) Numbness and tingling Code(s): R20.0 - ANESTHESIA OF SKIN; R20.2 - PARESTHESIA OF SKIN (3) Diabetes Code(s): E11.9 - TYPE 2 DIABETES MELLITUS WITHOUT COMPLICATIONS Assessment/Plan 78 year old woman came to hospital complaining of left facial and left upper extremity numbness which she has experiences for the last 4 days. (11/22/18) Denied any focal weakness. Pt states that her BP has been elevated for several days because she has not been taking her BP meds. using wlaker at baseline; no focal c/o denies slurred speech or swallowing c/o. HD CT IMPRESSION: No significant interval change or CT evidence of acute intracranial pathology is identified. Correlate clinically to determine further evaluation and follow-up. AP : subacute onset L face /arm numbness, r/o R thalamic ischemic event, likely small vessel uncontrolled DM outside of TPA window and low NIH-- check MRI MRA-- may require sedation check Dopplers ASA, statin for now , DM control ECHO, HOLTER PT and swallow consult DR AMEZQUITA
[2018-11-26 15:05] VITALS: BMI 34.0
[2018-11-26] MEDS ORDERED: LISINOPRIL 20 MG TABLET (FP) PO ONE (17:29)
[2018-11-26] MEDS: ROSUVASTATIN CA 20 MG TABLET (FP) PO SCH (22:06)
[2018-11-26] MEDS ORDERED: LACTULOSE 20 GM/30 ML UDC (FOR ORAL USE ONLY) PO ONE (22:35)
[2018-11-27] MEDS: INSULIN SLIDING SCALE (NOVOLOG) 1 VIAL SQ SCH ×3 (06:24→21:41)
[2018-11-27] MEDS ORDERED: LACTULOSE 20 GM/30 ML UDC (FOR ORAL USE ONLY) PO ONE (06:30)
[2018-11-27 07:06] LABS: HEMATOCRIT 33.7 % (32.4-45.2); HEMOGLOBIN 11.3 GM/dL (10.7-15.3); MCHC 33.5 g/dl (32.0-36.0); MEAN CELL VOLUME 80.8 fl (80-96); MEAN PLT VOLUME 10.9 fl (7.5-11.1); PLATELET COUNT 158 K/MM3 (134-434); RBC 4.17 M/mm3 (3.60-5.2); RDW 13.4 % (11.6-15.6); WHITE BLOOD COUNT 7.5 K/mm3 (4.0-10.0)
[2018-11-27 07:26] LABS: ALBUMIN 3.6 g/dl (3.4-5.0); BILIRUBIN,TOTAL 0.9 mg/dL (0.2-1); BLOOD UREA NITROGEN 15.5 mg/dL (7-18); CREATININE 1.3 mg/dL (0.55-1.3); POTASSIUM 4.3 mmol/L (3.5-5.1); TOT PROT 7.2 g/dl (6.4-8.2)
--- NOTE | 2018-11-27 09:21 | PN ---
Progress Note, Physician Chief Complaint: L facial numbness HTN History of Present Illness: Previous notes and events reviewed awake and alert NAD complain of numb/tingle to L side of mouth no facial droop or slurred speech noted denies chest pain c/o SOB with exertion - Current Medication List Current Medications: Active Medications Aspirin (Asa -) 81 mg PO DAILY [facility] Last Admin: 11/26/18 11:42 Dose: 81 mg Insulin Aspart (Novolog Vial Sliding Scale -) 1 vial SQ ACHS [facility]; Protocol Last Admin: 11/27/18 06:24 Dose: Not Given Lisinopril (Prinivil) 20 mg PO DAILY [facility] Last Admin: 11/26/18 11:42 Dose: 20 mg Rosuvastatin Calcium (Crestor -) 20 mg PO HS [facility] Last Admin: 11/26/18 22:06 Dose: 20 mg - Objective Vital Signs: Vital Signs Temperature 97.8 F 11/27/18 05:00 Pulse Rate 56 L 11/27/18 05:00 Respiratory Rate 20 11/27/18 05:00 Blood Pressure 161/69 11/27/18 05:00 O2 Sat by Pulse Oximetry (%) 94 L 11/26/18 21:00 Constitutional: Yes: No Distress, Calm, Obese Eyes: Yes: Conjunctiva Clear HENT: Yes: Atraumatic Cardiovascular: Yes: Regular Rate and Rhythm Respiratory: Yes: Regular, CTA Bilaterally Gastrointestinal: Yes: Normal Bowel Sounds, Soft Musculoskeletal: Yes: Muscle Weakness Extremities: Yes: WNL Edema: No Neurological: Yes: Alert, Numbness (L side of mouth) Psychiatric: Yes: Alert Labs: CBC, BMP 11/27/18 05:55 11/27/18 05:55 INR, PTT INR 1.08 (0.83-1.09) 11/25/18 15:15 Problem List - Problems (1) HTN (hypertension) Assessment/Plan: -Lisinopril daily -low Na diet -Cardiology consult Code(s): I10 - ESSENTIAL (PRIMARY) HYPERTENSION (2) Numbness and tingling Assessment/Plan: -Neurology on board -neuro checks -Head CT scan shows no significant interval change or CT evidence of acute intracranial pathology is identified -Carotid Doppler mild atherosclerotic disease with no evidence of hemodynamically significant stenosis -fall precaution -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
[2018-11-27] MEDS: LISINOPRIL 20 MG TABLET (FP) PO SCH (09:47)
[2018-11-27] MEDS: ASPIRIN 81 MG CHEWABLE TABLETS PO SCH (09:47)
--- NOTE | 2018-11-27 12:08 | PN ---
Progress Note (short form) - Note Progress Note: 78 year old woman came to hospital complaining of left facial and left upper extremity numbness which she has experiences for the last 4 days. (11/22/18) Denied any focal weakness. Pt states that her BP has been elevated for several days because she has not been taking her BP meds. using wlaker at baseline; no focal c/o denies slurred speech or swallowing c/o. HD CT IMPRESSION: No significant interval change or CT evidence of acute intracranial pathology is identified. Correlate clinically to determine further evaluation and follow-up. Doppler (-) FU today : no new issues , numbness left face and arm continue - Past Medical History Cardio/Vascular: Yes: HTN, Hyperlipdemia - Alcohol/Substance Use Hx Alcohol Use: No - Smoking History Smoking history: Never smoked Have you smoked in the past 12 months: No Aproximately how many cigarettes per day: 0 Home Medications - Allergies Allergies/Adverse Reactions: Allergies Allergy/AdvReac Type Severity Reaction Status Date / Time No Known Drug Allergies Allergy Verified 11/25/18 11:35 acetaminophen [From Percocet] AdvReac Mild Verified 11/25/18 11:35 oxycodone [From Percocet] AdvReac Mild Verified 11/25/18 11:35 - Home Medications Home Medications: Ambulatory Orders Aspirin [ASA -] 81 mg PO DAILY #30 tab.chew 10/13/17 Linaclotide [Linzess] 145 mcg PO DAILY 11/25/18 Linagliptin [Tradjenta] 5 mg PO DAILY 11/25/18 Rosuvastatin [Crestor -] 20 mg PO HS 11/25/18 Physical Exam-Neuro Vital Signs: Vital Signs Temperature 97.8 F 11/27/18 05:00 Pulse Rate 56 L 11/27/18 05:00 Respiratory Rate 20 11/27/18 05:00 Blood Pressure 161/69 11/27/18 05:00 O2 Sat by Pulse Oximetry (%) 94 L 11/26/18 21:00 CBC, BMP 11/26/18 05:20 11/26/18 06:00 INR, PTT INR 1.08 (0.83-1.09) 11/25/18 15:15 NIH Stroke Scale - Last Known Well Date/Time & Onset Date Last Known Well: 11/22/18 - Initial Evaluation Level of consciousness: Alert Ask patient the month and their age: Answers both correctly Ask patient to open & close eyes; make fist and let go: Obeys both correctly Best gaze (horizontal eye movement): Normal Visual field testing: No visual field loss Facial paresis (Show teeth/raise eyebrows/close eyes tight): Normal symmetrical movement Motor Function: Left Arm: Normal Motor Function: Right Arm: Normal (extends arm 90 (or 45) degrees for 10 seconds without drift Motor Function: Left Leg: Normal (extends leg 30 degrees for 5 seconds without drift) Motor Function: Right Leg: Normal (extends leg 30 degrees for 5 seconds without drift) Limb Ataxia: No ataxia Sensory(Use pinprick test arms,legs,trunk,face/side to side): Mild to moderate decrease in sensation Best language (Describe picture, name items, read sentences): No Aphasia Dysarthria (read several words): Normal articulation Extinction and Inattention: No abnormality - Total Score NIH Stroke Scale Score: 1 Problem List - Problems (1) HTN (hypertension) Code(s): I10 - ESSENTIAL (PRIMARY) HYPERTENSION (2) Numbness and tingling Code(s): R20.0 - ANESTHESIA OF SKIN; R20.2 - PARESTHESIA OF SKIN (3) Diabetes Code(s): E11.9 - TYPE 2 DIABETES MELLITUS WITHOUT COMPLICATIONS Assessment/Plan 78 year old woman came to hospital complaining of left facial and left upper extremity numbness which she has experiences for the last 4 days. (11/22/18) Denied any focal weakness. Pt states that her BP has been elevated for several days because she has not been taking her BP meds. using wlaker at baseline; no focal c/o denies slurred speech or swallowing c/o. HD CT IMPRESSION: No significant interval change or CT evidence of acute intracranial pathology is identified. Correlate clinically to determine further evaluation and follow-up. AP : subacute onset L face /arm numbness, r/o R thalamic ischemic event, likely small vessel uncontrolled DM outside of TPA window and low NIH-- check MRI MRA-- may require sedation check Dopplers ASA, statin for now , DM control ECHO, HOLTER PT and swallow consult DR AMEZQUITA Problem List - Problems (1) HTN (hypertension) Code(s): I10 - ESSENTIAL (PRIMARY) HYPERTENSION (2) Numbness and tingling Code(s): R20.0 - ANESTHESIA OF SKIN; R20.2 - PARESTHESIA OF SKIN (3) Diabetes Code(s): E11.9 - TYPE 2 DIABETES MELLITUS WITHOUT COMPLICATIONS
[2018-11-27] MEDS ORDERED: diazePAM 5 MG TABLET PO ONE (16:21)
--- NOTE | 2018-11-27 16:48 | CON.CARD ---
Consult Consult Specialty:: Cardiology Referred by:: Dr. Fishman Reason for Consultation:: HTN - History of Present Illness Chief Complaint: L facial numbness History of Present Illness: 78 year old woman PMH of HTN, DM, hyperlipidemia admitted with c/o L facial numbness for a few days. being evaluated by neurology for possible CVA. HTN was uncontrolled prior to admission. pt seen and examined today in nad with family at bedside. denies any chest pain, sob, palpitations. no syncope, near syncope. - History Source History Provided By: Patient, Family Member Limitations to Obtaining History: No Limitations - Past Medical History Cardio/Vascular: Yes: HTN, Hyperlipdemia - Alcohol/Substance Use Hx Alcohol Use: No - Smoking History Smoking history: Never smoked Have you smoked in the past 12 months: No Aproximately how many cigarettes per day: 0 Home Medications - Allergies Allergies/Adverse Reactions: Allergies Allergy/AdvReac Type Severity Reaction Status Date / Time No Known Drug Allergies Allergy Verified 11/25/18 11:35 acetaminophen [From Percocet] AdvReac Mild Verified 11/25/18 11:35 oxycodone [From Percocet] AdvReac Mild Verified 11/25/18 11:35 - Home Medications Home Medications: Ambulatory Orders Aspirin [ASA -] 81 mg PO DAILY #30 tab.chew 10/13/17 Linaclotide [Linzess] 145 mcg PO DAILY 11/25/18 Linagliptin [Tradjenta] 5 mg PO DAILY 11/25/18 Rosuvastatin [Crestor -] 20 mg PO HS 11/25/18 Family Disease History - Family Disease History Family History: Denies Review of Systems - Review of Systems Constitutional: denies: No Symptoms, Chills, Diaphoresis, Fever, Lethargy, Loss of Appetite, Malaise, Night Sweats, Unintentional Wgt. Loss, Weakness, Other Eyes: denies: No Symptoms, Blind Spots, Blurred Vision, Double Vision, Eye Pain , Floaters, Photophobia, Recent Change in Vision, Other HENT: denies: No Symptoms, Difficult Swallowing, Ear Discharge, Ear Pain, Epistaxis, Gingival Bleeding, Hearing Loss, Mouth Swelling, Nasal Congestion, Ocular Prosthesis, Throat Pain, Toothache, Ringing in Ears, Other Neck: denies: No Symptoms, Decreased ROM, Lumps, Pain on Movement, Stiffness, Swollen Glands, Tenderness, Other Cardiovascular: denies: No Symptoms, Chest Pain, Edema, Palpitations, Shortness of Breath, Other Respiratory: denies: No Symptoms, Cough, Exercise Intolerance, Hemoptysis, Orthopnea, PND, Snoring, SOB, SOB on Exertion, Wheezing, Other Gastrointestinal: denies: No Symptoms, Abdominal Pain, Bloating, Constipation, Diarrhea, Dysphagia, Indigestion, Melena, Nausea, Rectal Bleeding, Vomiting, Vomiting Blood, Other Genitourinary: denies: No Symptoms, Burning, Discharge, Dysuria, Flank Pain, Frequency, Hematuria, Incontinence, Lesions, Menses, Pain, Testicular Mass, Testicular Pain, Testicular Swelling, Urgency, Vaginal Bleeding, Other Breasts: denies: No Symptoms Reported, See HPI, Breast Implants, Discharge from Nipple, Lumps, Pain, Skin Changes, Other Musculoskeletal: denies: No Symptoms, Back Pain, Crepitus, Decreased ROM, Extremity Pain, Joint Pain, Joint Swelling, Muscle Pain, Muscle Cramps, Muscle Weakness, Other Integumentary: denies: No Symptoms, Blister, Bruising, Change in Color, Eczema, Erythema, Incision, Lesions, Lump, Pallor, Pruritis, Rash, Wound, Other Neurological: reports: Parasthesia. denies: No Symptoms, Change in LOC, Change in Speech, Confusion, Dizziness, Headache, Incoordination, Numbness, Pre- Existing Deficit, Seizure, Syncope, Tremors, Unsteady Gait, Weakness, Other Endocrine: denies: No Symptoms, Excessive Sweating, Flushing, Increased Hunger, Increased Thirst, Intolerance to Cold, Intolerance to Heat, Unexplained Weight Gain, Unexplained Weight Loss, Other Hematology/Lymphatic: denies: No Symptoms, Easily Bruised, Excessive Bleeding, Swollen Glands, Other Psychiatric: denies: No Symptoms, Altered Sleep Pattern, Anxiety, Depression, Hallucinations, Panic, Paranoia, Suicidal, Other - Risk Factors Known Risk Factors: Yes: Hypertension Vital Signs: Vital Signs Temperature 97.9 F 11/27/18 14:00 Pulse Rate 84 11/27/18 14:00 Respiratory Rate 18 11/27/18 14:00 Blood Pressure 153/76 11/27/18 14:00 O2 Sat by Pulse Oximetry (%) 95 11/27/18 10:00 Constitutional: Yes: No Distress, Calm Eyes: Yes: Conjunctiva Clear, EOM Intact, PERRL HENT: Yes: Atraumatic, Normocephalic Neck: Yes: Supple, Trachea Midline Respiratory: Yes: Regular, CTA Bilaterally. No: Rales, Rhonchi, SOB, Wheezes Gastrointestinal: Yes: Normal Bowel Sounds, Soft. No: Distention, Tenderness Cardiovascular: Yes: Regular Rate and Rhythm. No: Bradycardia, Tachycardia, Pulse Irregular, Gallop, Rub, Varicosities JVD: No Carotid Bruit: No PMI: Non-Displaced Heart Sounds: Yes: S1, S2. No: Split S2, S3, S4, Clicks, Gallop, Rub, Bruit Murmur: No: Systolic Murmur, Diastolic Murmur Musculoskeletal: Yes: WNL Extremities: Yes: WNL Edema: No Peripheral Pulses WNL: Yes Peripheral Pulses: 2+ Left Doralis Pedis, 2+ Right Dorsalis Pedis Neurological: Yes: Alert, Oriented Psychiatric: Yes: Alert, Oriented - Other Data Labs, Other Data: CBC, BMP 11/27/18 05:55 11/27/18 05:55 INR, PTT INR 1.08 (0.83-1.09) 11/25/18 15:15 sb 53bpm, t wave abnl consider lateral ischemia Imaging - Results Chest X-ray: Report Reviewed, Image Reviewed EKG: Report Reviewed, Image Reviewed Other: Report Reviewed, Image Reviewed (tele-nsr, no arrhythmias recorded) Assessment/Plan 78 year old woman PMH of HTN, DM, hyperlipidemia admitted with c/o L facial numbness for a few days. being evaluated by neurology for possible CVA. HTN was uncontrolled prior to admission. pt seen and examined today in nad with family at bedside. denies any chest pain, sob, palpitations. no syncope, near syncope. L facial numbness -neuro work up in progress -planned for MRI -monitor tele to eval for occult arrhythmias -if CVA diagnosed rec longer term event monitor when outpatient to evaluate for occult arrhythmia -currently on ASA and statin -can check echo as part of possible CVA work up HTN-severly uncontrolled prior to admission pt reports SBP >200mmHg -now mildly above detention goal but adequate for now -BP targets to be defined by Neuro if in setting of CVA may want permissive HTN -cont Lisinopril at current dose for now -if goal is for lower BP target can increase Lisinopril to 40mg daily and if needed can add amlodipine 5mg daily No other inpatient cardiac work up is needed at this time. will see as needed. please call with any questions.
[2018-11-27] MEDS: ROSUVASTATIN CA 20 MG TABLET (FP) PO SCH (21:41)
--- NOTE | 2018-11-28 09:12 | PN ---
Progress Note, Physician - Current Medication List Current Medications: Active Medications Aspirin (Asa -) 81 mg PO DAILY [facility] Last Admin: 11/27/18 09:47 Dose: 81 mg Insulin Aspart (Novolog Vial Sliding Scale -) 1 vial SQ [facility]; Protocol Last Admin: 11/27/18 21:41 Dose: Not Given Lisinopril (Prinivil) 20 mg PO DAILY [facility] Last Admin: 11/27/18 09:47 Dose: 20 mg Rosuvastatin Calcium (Crestor -) 20 mg PO HS [facility] Last Admin: 11/27/18 21:41 Dose: 20 mg - Objective Vital Signs: Vital Signs Temperature 98.3 F 11/28/18 06:00 Pulse Rate 68 11/28/18 06:00 Respiratory Rate 18 11/28/18 06:00 Blood Pressure 137/59 L 11/28/18 06:00 O2 Sat by Pulse Oximetry (%) 96 11/27/18 22:00 Cardiovascular: Yes: Regular Rate and Rhythm Respiratory: Yes: Regular, CTA Bilaterally Gastrointestinal: Yes: Normal Bowel Sounds, Soft Labs: CBC, BMP 11/27/18 05:55 11/27/18 05:55 INR, PTT INR 1.08 (0.83-1.09) 11/25/18 15:15 Assessment/Plan - Problems (1) HTN (hypertension) Assessment/Plan: -Lisinopril daily -low Na diet -Cardiology consult Code(s): I10 - ESSENTIAL (PRIMARY) HYPERTENSION (2) Numbness and tingling Assessment/Plan: -Neurology on board -neuro checks -Head CT scan shows no significant interval change or CT evidence of acute intracranial pathology is identified -Carotid Doppler mild atherosclerotic disease with no evidence of hemodynamically significant stenosis -fall precaution -LINE DRIVER eval -HOB elevated 30-45 degrees -Brain and Neck MRI--give Valium 5mg PO 30min before MRI -Rosuvastatin -Echocardiogram -Holter monitor Code(s): R20.0 - ANESTHESIA OF SKIN; R20.2 - PARESTHESIA OF SKIN (3) Diabetes Assessment/Plan: -HgA1c 9.8% -BGM [facility] -[facility] -Endocrinology consult Code(s): E11.9 - TYPE 2 DIABETES MELLITUS WITHOUT COMPLICATIONS
[2018-11-28] MEDS: INSULIN SLIDING SCALE (NOVOLOG) 1 VIAL SQ SCH ×4 (10:16→22:23)
--- NOTE | 2018-11-28 10:34 | CONSULT ---
Admitting History and Physical - Primary Care Physician PCP: Josef Fishman - Admission History of Present Illness: 78 year old woman came to hospital complaining of left facial and left upper extremity numbness stating that her BP has been elevated. She spoke with her blacking machine operator who ordered a new BP medication, but she didn't get a chance to fill it . No acute intracranial pathology identified. Per Neurology-AP : subacute onset L face /arm numbness, r/o R thalamic ischemic event, likely small vessel uncontrolled DM ;outside of TPA window and low NIH-- Pending MRI/MRA. Selected Entries 11/27/18 11/27/18 11/27/18 01:00 05:00 10:00 Breakfast Diet Tolerated Lunch Supper Temperature 98.1 F 97.8 F 97.8 F 11/27/18 11/27/18 11/27/18 11:32 14:00 17:00 Breakfast 100% Diet Tolerated Well Well Well Lunch 100% Supper 75% Temperature 97.9 F 97.7 F 11/27/18 11/28/18 11/28/18 22:00 02:00 06:00 Breakfast Diet Tolerated Lunch Supper Temperature 97.7 F 98.3 F 98.3 F 11/28/18 09:13 Breakfast Diet Tolerated Lunch Supper Temperature 99.1 F Laboratory Tests 11/27/18 05:55 WBC 7.5 This is my first consult with this pt. History Source: Patient Limitations to Obtaining History: No Limitations - Past Medical History Cardiovascular: Yes: HTN, Hyperlipdemia Heme/Onc: Yes: Anemia - Smoking History Smoking history: Never smoked Have you smoked in the past 12 months: No Aproximately how many cigarettes per day: 0 - Alcohol/Substance Use Hx Alcohol Use: No History - Admission Reason For Visit: NUMBNESS AND TINGLING SENSATION OF SKIN - Diagnostics X-ray: Report Reviewed CT Scan: Report Reviewed MRI: Pending - General Mental Status: Alert and Oriented, Awake and Alert, Able to Follow Commands Attention: Intact Ability to Follow Directions: Good Head/Neck Control: WFL - Hearing Hearing: Normal Speech Evaluation - Communication Primary Language: ARMENIAN Communication: Yes: Within Normal Limits - Speech Production Able to Make Needs Known: Yes: WNL Intelligibility: Yes: Mildly Impaired (mild hypernasality. Pt reports speech production at baseline.) - Speech Characteristics Voice Loudness: Normal Voice Pitch: Yes: Normal Voice Phonatory-based Quality: Yes: Normal Speech Clarity: < 100% Nasal Resonance: Hypernasal (mild) Articulation: Yes: Precise Rate of Speech: Intact - Language/Auditory Comprehension Follows: Yes: 2 Stage Simple Commands - Language/Verbal Expression Able to Respond to Simple Queries: Yes: WNL Able to Communicate Wants and Needs: Yes: WNL Functional Communication Status: Yes: WNL Attention: Yes: Intact - Swallow Evaluation/Bedside Assessment Current Nutritional Intake: Regular, Thin Liquids Oral Secretions: Yes: WFL Dentition: Yes: Edentulous Facial Symmetry at Rest: Symmetrical Facial Symmetry on Retraction: Symmetrical Facial Movement: Controlled Against Resistance Opening: Normal Against Resistance Closing: Normal Pucker Lips: Normal Smile: Normal Lingual Movement: Normal, Symmetric Lingual Speed of Movement: Normal Lingual Movement Strgth Against Opposition: Normal Lingual Movement Characteristics: Normal Laryngeal Elevation: WFL Laryngeal Movement: Able to Palpate Rate of Intake: WFL Bolus Size: WFL Labial Seal: WFL Chewing: WFL (edentulous) Oral Prep Time: WFL A-P Transit: WFL Pocketing: None Coughing/Throat Clear: No Change in Voice: No Recommendations - Speech Evaluation, Impression/Plan Impression: Speech/swallowing/language/cognition functional, reported by pt to be at baseline. Mild hypernasality, initially, which seemed better when I returned to the room. Pt reported that she "lost her voice this am for 2 hours" . Nursing reported speech improved compared to this am. r/o TIA's? varying speech production? CT head (-), pending MRI/MRA - Dysphagia Impressions/Plan Swallowing Skills: WFL *Silent aspiration: cannot be R/O at bedside Dysphagia Treatment Plan: Elevate HOB during feed - Recommendations Diet Consistency: Regular (soft? Edentulous. Denies difficulty with reg diet.) Medication Administration: Whole with water Liquids: Thin Liquids
[2018-11-28] MEDS: LISINOPRIL 20 MG TABLET (FP) PO SCH (10:54)
[2018-11-28] MEDS: ASPIRIN 81 MG CHEWABLE TABLETS PO SCH (10:54)
--- NOTE | 2018-11-28 13:12 | ECHO ---
Name: NUSRAT BECERRA Exam:Adult Echocardiogram Study Date: 11/28/2018 10:01 AM Age: 78 yrs Reason For Study: r/o septal defects Height: 66 in Weight: 216 lb BSA: 2.1 m2 MMode/2D Measurements & Calculations IVSd: 1.2 cm Ao root diam: 3.6 cm LVIDd: 4.7 cm LA dimension: 3.3 cm LVIDs: 2.6 cm ACS: 1.8 cm LVPWd: 1.4 cm IVSs: 1.7 cm LVPWs: 1.8 cm EDV(Teich): 100.7 ml ESV(Teich): 24.1 ml Doppler Measurements & Calculations MV E max hermes: 72.3 cm/sec Ao V2 max: 171.4 cm/sec MV A max hermes: 90.3 cm/sec Ao max P.8 mmHg MV E/A: 0.80 Ao V2 mean: 119.8 cm/sec Ao mean P.7 mmHg Ao V2 VTI: 40.1 cm TR max hermes: 213.6 cm/sec Med Peak E' Hermes: 3.9 cm/sec TR max P.3 mmHg Med E/e': 18.3 Lat Peak E' Hermes: 4.5 cm/sec Lat E/e': 16.1 Procedure A complete two-dimensional transthoracic echocardiogram was performed (2D, M-mode, Doppler and color flow Doppler). Left Ventricle The left ventricle is normal in size. There is mild concentric left ventricular hypertrophy. Left john tricular systolic function is normal. Ejection Fraction = >70%. Diastolic dysfunction, Grade II, consistent wi th elevated left atrial pressure. Ratio E/E'= 18. No regional wall motion abnormalities noted. Right Ventricle The right ventricle is normal size. The right ventricular systolic function is normal. Atria The left atrial size is normal. Right atrial size is normal. Mitral Valve There is mild mitral annular calcification. There is mild mitral regurgitation. Tricuspid Valve The tricuspid valve is normal in structure and function. There is mild tricuspid regurgitation. Right ventricular systolic pressure is normal. Aortic Valve There is mild aortic sclerosis.;. Mild aortic regurgitation. Pulmonic Valve The pulmonic valve is not well visualized. Great Vessels The aortic root is normal size. Pericardium/Pleura Small pericardial effusion (<1cm). Interpretation Summary The left ventricle is normal in size. There is mild concentric left ventricular hypertrophy. Left ventricular systolic function is normal. No regional wall motion abnormalities noted. Ejection Fraction = >70%. Diastolic dysfunction, Grade II, consistent with elevated left atrial pressure. Ratio E/E'= 18 The right ventricular systolic function is normal. The left atrial size is normal. Right atrial size is normal. There is mild mitral annular calcification. There is mild mitral regurgitation. There is mild tricuspid regurgitation. Right ventricular systolic pressure is normal. There is mild aortic sclerosis.; Mild aortic regurgitation. Small pericardial effusion (<1cm) When compared to study dated 10/12/17, no significant changes are seen Jorgito Roman MD 11/28/2018 01:11 PM
[2018-11-28] MEDS ORDERED: diazePAM 5 MG TABLET PO ONE (20:00)
[2018-11-28] MEDS: ROSUVASTATIN CA 20 MG TABLET (FP) PO SCH (22:23)
--- NOTE | 2018-11-28 23:54 | CONSULT ---
Consult Consult Specialty:: ENDOCRINE Referred by:: RAFAL WALTERS Reason for Consultation:: DIABETES MELLITUS TYPE 2 - History of Present Illness Chief Complaint: FACIAL NUMBNESS LEFT SIDE History of Present Illness: 78 year old woman PMH,dm2,presenting to the hospital complaining of left facial and left upper extremity numbness which she has experiences for past 3 days. Denied any focal weakness. Denied facial droop or slurred speech. Pt states that her BP has been elevated for several days because she has not been taking her BP meds.she has dm and takes only onglyza at home she claims sugars have not been over 200mg/dl,she denies nausea vomiting, or hypoglycemia. - Past Medical History Cardio/Vascular: Yes: HTN, Hyperlipdemia - Alcohol/Substance Use Hx Alcohol Use: No - Smoking History Smoking history: Never smoked Have you smoked in the past 12 months: No Aproximately how many cigarettes per day: 0 Home Medications - Allergies Allergies/Adverse Reactions: Allergies Allergy/AdvReac Type Severity Reaction Status Date / Time No Known Drug Allergies Allergy Verified 11/25/18 11:35 acetaminophen [From Percocet] AdvReac Mild Verified 11/25/18 11:35 oxycodone [From Percocet] AdvReac Mild Verified 11/25/18 11:35 - Home Medications Home Medications: Ambulatory Orders Aspirin [ASA -] 81 mg PO DAILY #30 tab.chew 10/13/17 Linaclotide [Linzess] 145 mcg PO DAILY 11/25/18 Linagliptin [Tradjenta] 5 mg PO DAILY 11/25/18 Rosuvastatin [Crestor -] 20 mg PO HS 11/25/18 Review of Systems - Review of Systems Constitutional: reports: Weakness Eyes: reports: No Symptoms HENT: reports: No Symptoms Neck: reports: No Symptoms Cardiovascular: reports: No Symptoms Respiratory: reports: Exercise Intolerance, SOB on Exertion Gastrointestinal: reports: No Symptoms Genitourinary: reports: No Symptoms Breasts: reports: No Symptoms Reported Musculoskeletal: reports: No Symptoms Endocrine: reports: Unexplained Weight Gain Physical Exam Vital Signs: Vital Signs Temperature 98.7 F 11/28/18 20:43 Pulse Rate 63 11/28/18 20:43 Respiratory Rate 20 11/28/18 20:43 Blood Pressure 153/67 11/28/18 20:43 O2 Sat by Pulse Oximetry (%) 99 11/28/18 20:43 Constitutional: Yes: Calm Eyes: Yes: EOM Intact HENT: Yes: Normocephalic Neck: Yes: Trachea Midline Cardiovascular: Yes: Regular Rate and Rhythm Respiratory: Yes: CTA Bilaterally Gastrointestinal: Yes: Normal Bowel Sounds ...Rectal Exam: Yes: Deferred Renal/: Yes: WNL Musculoskeletal: Yes: WNL Extremities: Yes: WNL Integumentary: Yes: WNL Neurological: Yes: Alert, Oriented Labs: CBC, BMP 11/27/18 05:55 11/27/18 05:55 Problem List - Problems (1) HTN (hypertension) Code(s): I10 - ESSENTIAL (PRIMARY) HYPERTENSION (2) Cervical muscle strain Code(s): S16.1XXA - STRAIN OF MUSCLE, FASCIA AND TENDON AT NECK LEVEL, INIT (3) Chest pain Code(s): R07.9 - CHEST PAIN, UNSPECIFIED Qualifiers: Chest pain type: unspecified Qualified Code(s): R07.9 - Chest pain, unspecified (4) Delirium Code(s): R41.0 - DISORIENTATION, UNSPECIFIED (5) Diabetes Code(s): E11.9 - TYPE 2 DIABETES MELLITUS WITHOUT COMPLICATIONS (6) Headache Code(s): R51 - HEADACHE Qualifiers: Headache type: unspecified Headache chronicity pattern: acute headache Intractability: not intractable Qualified Code(s): R51 - Headache Assessment/Plan Current Active Problems DM TYPE 2, NEUROPATHY METABOLIC SYNDROME HTN (hypertension) (Acute) Numbness and tingling (Acute) HLD Laboratory Results - last 24 hr 11/25/18 11/26/18 11/26/18 22:46 14:38 16:32 POC Glucometer 120 93 118 11/26/18 11/27/18 11/27/18 22:10 05:57 21:40 POC Glucometer 156 140 149 11/28/18 11/28/18 11/28/18 11:41 16:45 22:21 POC Glucometer 141 167 143 Laboratory Tests 11/27/18 11/27/18 11/27/18 05:55 05:57 21:40 Sodium 141 Potassium 4.3 Chloride 108 H Carbon Dioxide 29 Anion Gap 4 L BUN 15.5 Creatinine 1.3 Est GFR (CKD-EPI)AfAm 45.50 POC Glucometer 140 149 11/28/18 11:41 Sodium Potassium Chloride Carbon Dioxide Anion Gap BUN Creatinine Est GFR (CKD-EPI)AfAm POC Glucometer 141 PLAN: CHECK HBA1C BGM QID NOVOLOG SCALE DIET NUTRITION LIPID PANEL JANUVIA 100MG DAILY
[2018-11-29] MEDS: INSULIN SLIDING SCALE (NOVOLOG) 1 VIAL SQ SCH ×3 (06:27→17:39)
[2018-11-29] MEDS: sitaGLIPtin PHOSPHATE 50 MG TABLET PO SCH ×2 (06:28→06:32)
[2018-11-29] MEDS: ASPIRIN 81 MG CHEWABLE TABLETS PO SCH (10:32)
[2018-11-29] MEDS: LISINOPRIL 20 MG TABLET (FP) PO SCH (10:32)
--- NOTE | 2018-11-29 11:36 | PN ---
Progress Note, Physician Chief Complaint: L facial numbness HTN History of Present Illness: NAD self ambulatory MRI thalamic stroke Echo no change from previous study U/S carotid negative - Current Medication List Current Medications: Active Medications Aspirin (Asa -) 81 mg PO DAILY [facility] Last Admin: 11/29/18 10:32 Dose: 81 mg Insulin Aspart (Novolog Vial Sliding Scale -) 1 vial SQ [facility]; Protocol Last Admin: 11/29/18 11:20 Dose: Not Given Lisinopril (Prinivil) 20 mg PO DAILY [facility] Last Admin: 11/29/18 10:32 Dose: 20 mg Rosuvastatin Calcium (Crestor -) 20 mg PO HS [facility] Last Admin: 11/28/18 22:23 Dose: 20 mg Sitagliptin Phosphate (Januvia -) 50 mg PO DAILY@0700 [facility] Last Admin: 11/29/18 06:32 Dose: Not Given - Objective Vital Signs: Vital Signs Temperature 98.0 F 11/29/18 09:00 Pulse Rate 69 11/29/18 09:00 Respiratory Rate 19 11/29/18 09:00 Blood Pressure 131/56 L 11/29/18 09:00 O2 Sat by Pulse Oximetry (%) 99 11/29/18 09:00 Constitutional: Yes: Well Nourished, No Distress, Calm, Obese Cardiovascular: Yes: Regular Rate and Rhythm Respiratory: Yes: Regular Gastrointestinal: Yes: Normal Bowel Sounds, Soft, Abdomen, Obese Genitourinary: Yes: WNL Musculoskeletal: Yes: WNL Extremities: Yes: WNL Edema: No Peripheral Pulses WNL: Yes Neurological: Yes: Alert, Oriented Psychiatric: Yes: Alert, Oriented Labs: CBC, BMP 11/27/18 05:55 11/27/18 05:55 INR, PTT INR 1.08 (0.83-1.09) 11/25/18 15:15 Problem List - Problems (1) Thalamic stroke Assessment/Plan: -Seen by neurology+ cardiology -Needs BP control-compliance with medications encouraged -U/S carotid normal -Echo essentially unchanged Code(s): I63.9 - CEREBRAL INFARCTION, UNSPECIFIED (2) HTN (hypertension) Assessment/Plan: -Continue lisinopril 20 mg po daily -low sodium/diabetic diet Code(s): I10 - ESSENTIAL (PRIMARY) HYPERTENSION (3) Numbness and tingling Code(s): R20.0 - ANESTHESIA OF SKIN; R20.2 - PARESTHESIA OF SKIN (4) Diabetes Assessment/Plan: -a1c at 9.5 -BGM AC HS -Seen by Endocrinology -Roma márquez in patient and bernardo upon discharge -RD consult -ISS -Diabetic/sodium diet Code(s): E11.9 - TYPE 2 DIABETES MELLITUS WITHOUT COMPLICATIONS Assessment/Plan see problem list
[2018-11-29] MEDS: ENOXAPARIN NA (PORCINE) 40 MG/0.4 ML DISP.SYRIN SQ SCH ×2 (12:12→12:35)
[2018-11-29 13:01] LABS: BLOOD UREA NITROGEN 18.2 mg/dL (7-18); CALCIUM 8.7 mg/dL (8.5-10.1); CREATININE 1.2 mg/dL (0.55-1.3); POTASSIUM 4.4 mmol/L (3.5-5.1)
[2018-11-29 15:48] VITALS: BP 145/62; PULSE 68; TEMP 98.2
--- NOTE | 2018-11-29 15:50 | PN ---
Progress Note (short form) - Note Progress Note: 78 year old woman came to hospital complaining of left facial and left upper extremity numbness which she has experiences for the last 4 days. (11/22/18) Denied any focal weakness. Pt states that her BP has been elevated for several days because she has not been taking her BP meds. using wlaker at baseline; no focal c/o denies slurred speech or swallowing c/o. HD CT IMPRESSION: No significant interval change or CT evidence of acute intracranial pathology is identified. Correlate clinically to determine further evaluation and follow-up. 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 There is no hemorrhage. Prominence of the soft tissues around the odontoid process giving mass effect on the sac. This probably related to synovial proliferation, evaluation with contrast would however be helpful to rule out an en plaque meningioma. FU today : no new issues , numbness left face and arm continue , otherwsie stable and wants to go home - Past Medical History Cardio/Vascular: Yes: HTN, Hyperlipdemia - Alcohol/Substance Use Hx Alcohol Use: No - Smoking History Smoking history: Never smoked Have you smoked in the past 12 months: No Aproximately how many cigarettes per day: 0 Home Medications - Allergies Allergies/Adverse Reactions: Allergies Allergy/AdvReac Type Severity Reaction Status Date / Time No Known Drug Allergies Allergy Verified 11/25/18 11:35 acetaminophen [From Percocet] AdvReac Mild Verified 11/25/18 11:35 oxycodone [From Percocet] AdvReac Mild Verified 11/25/18 11:35 - Home Medications Home Medications: Ambulatory Orders Aspirin [ASA -] 81 mg PO DAILY #30 tab.chew 10/13/17 Linaclotide [Linzess] 145 mcg PO DAILY 11/25/18 Linagliptin [Tradjenta] 5 mg PO DAILY 11/25/18 Rosuvastatin [Crestor -] 20 mg PO HS 11/25/18 Physical Exam-Neuro Vital Signs: Vital Signs Temperature 98.2 F 11/29/18 13:00 Pulse Rate 68 11/29/18 13:00 Respiratory Rate 16 11/29/18 13:00 Blood Pressure 145/62 11/29/18 13:00 O2 Sat by Pulse Oximetry (%) 99 11/29/18 09:00 CBCD WBC 7.5 K/mm3 (4.0-10.0) 11/27/18 05:55 RBC 4.17 M/mm3 (3.60-5.2) 11/27/18 05:55 Hgb 11.3 GM/dL (10.7-15.3) 11/27/18 05:55 Hct 33.7 % (32.4-45.2) 11/27/18 05:55 MCV 80.8 fl (80-96) 11/27/18 05:55 MCHC 33.5 g/dl (32.0-36.0) 11/27/18 05:55 RDW 13.4 % (11.6-15.6) 11/27/18 05:55 Plt Count 158 K/MM3 (134-434) 11/27/18 05:55 MPV 10.9 fl (7.5-11.1) 11/27/18 05:55 CMP Sodium 140 mmol/L (136-145) 11/29/18 06:00 Potassium 4.4 mmol/L (3.5-5.1) 11/29/18 06:00 Chloride 108 mmol/L (98-107) H 11/29/18 06:00 Carbon Dioxide 28 mmol/L (21-32) 11/29/18 06:00 Anion Gap 4 MMOL/L (8-16) L 11/29/18 06:00 BUN 18.2 mg/dL (7-18) H 11/29/18 06:00 Creatinine 1.2 mg/dL (0.55-1.3) 11/29/18 06:00 Random Glucose 135 mg/dL (74-106) H 11/29/18 06:00 Calcium 8.7 mg/dL (8.5-10.1) 11/29/18 06:00 Total Bilirubin 0.9 mg/dL (0.2-1) 11/27/18 05:55 AST 11 U/L (15-37) L 11/27/18 05:55 ALT 16 U/L (13-61) 11/27/18 05:55 Alkaline Phosphatase 123 U/L (45-117) H 11/27/18 05:55 Total Protein 7.2 g/dl (6.4-8.2) 11/27/18 05:55 Albumin 3.6 g/dl (3.4-5.0) 11/27/18 05:55 CARDIAC ENZYMES Creatine Kinase 132 U/L (26-192) 11/25/18 15:15 Troponin I 0.09 ng/ml (0.00-0.05) H 11/25/18 15:15 NIH Stroke Scale - Last Known Well Date/Time & Onset Date Last Known Well: 11/22/18 - Initial Evaluation Level of consciousness: Alert Ask patient the month and their age: Answers both correctly Ask patient to open & close eyes; make fist and let go: Obeys both correctly Best gaze (horizontal eye movement): Normal Visual field testing: No visual field loss Facial paresis (Show teeth/raise eyebrows/close eyes tight): Normal symmetrical movement Motor Function: Left Arm: Normal Motor Function: Right Arm: Normal (extends arm 90 (or 45) degrees for 10 seconds without drift Motor Function: Left Leg: Normal (extends leg 30 degrees for 5 seconds without drift) Motor Function: Right Leg: Normal (extends leg 30 degrees for 5 seconds without drift) Limb Ataxia: No ataxia Sensory(Use pinprick test arms,legs,trunk,face/side to side): Mild to moderate decrease in sensation Best language (Describe picture, name items, read sentences): No Aphasia Dysarthria (read several words): Normal articulation Extinction and Inattention: No abnormality - Total Score NIH Stroke Scale Score: 1 Problem List - Problems (1) HTN (hypertension) Code(s): I10 - ESSENTIAL (PRIMARY) HYPERTENSION (2) Numbness and tingling Code(s): R20.0 - ANESTHESIA OF SKIN; R20.2 - PARESTHESIA OF SKIN (3) Diabetes Code(s): E11.9 - TYPE 2 DIABETES MELLITUS WITHOUT COMPLICATIONS Assessment/Plan 78 year old woman came to hospital complaining of left facial and left upper extremity numbness which she has experiences for the last 4 days. (11/22/18) Denied any focal weakness. Pt states that her BP has been elevated for several days because she has not been taking her BP meds. using wlaker at baseline; no focal c/o denies slurred speech or swallowing c/o. HD CT IMPRESSION: No significant interval change or CT evidence of acute intracranial pathology is identified. Correlate clinically to determine further evaluation and follow-up. AP : subacute onset L face /arm numbness, + R thalamic event-small vessel uncontrolled DM --needs FU outside of TPA window and low NIH-- Dopplers (-) ASA, statin for now , DM control ECHO (-) nurse and team aware neuro stable for DC home and can FU outpt thank you DR AMEZQUITA Problem List - Problems (1) HTN (hypertension) Code(s): I10 - ESSENTIAL (PRIMARY) HYPERTENSION (2) Numbness and tingling Code(s): R20.0 - ANESTHESIA OF SKIN; R20.2 - PARESTHESIA OF SKIN (3) Diabetes Code(s): E11.9 - TYPE 2 DIABETES MELLITUS WITHOUT COMPLICATIONS
--- NOTE | 2018-11-29 16:39 | HOL ---
Hook-up date: 2018-11-28 12:04:00 Duration: 08:59:00 Test Indications: NUMBNESS, ACUTE ONSET Medications: 80082 QRS complexes 1 Ventricular ectopics which represent <1 % of total QRS comp. 250 Supraventricular ectopics which represent <1 % of total QRS comp. * Paced QRS complexs which represent % of total QRS comp. * % of Time Classified as Noise VENTRICULAR ECTOPY 1 Isolated 0 Bigeminal Cycles 0 Couplets 0 Runs 0 Beats in Runs * Beats LONGEST at * BPM at :: -- * Beats FASTEST at * BPM at :: -- SUPRAVENTRICULAR ECTOPY 245 Isolated 1 Couplets 1 Runs 3 Beats in Runs 3 Beats LONGEST at 108 BPM at 15:01:33 2018-11-28 3 Beats FASTEST at 108 BPM at 15:01:33 2018-11-28 HEART RATES 52 MIN at 14:22:37 2018-11-28 66 AVG 90 MAX at 16:34:47 2018-11-28 LONGEST RR 1.536 secs at 15:01:34 2018-11-28 HOLTER RAN FOR APPROXIMATELY 9 HOURS DUE TO MRI Predominant rhythm was sinus HR range 52 to 90bpm Average HR 66bpm Single PVC Occasional PAC's with short 3 beat atrial run No significant pauses with longest R-R interval 1.53 seconds Confirmed by MD Saundra, Daniel ([id number]) on 11/29/2018 4:39:33 PM Referred By: Monique [email or web address] Overread By: Daniel Arguello MD
== END 2018-11-29 18:16 | disposition home or self-care (01) | DRG 65 ==
LOC: JER 11:29 → JERBED 17:43 → J4W 11-26 14:33
PROVIDERS: ADMIT Family Medicine; ATTEND Family Medicine
DX: I63.9 Cerebral infarction, unspecified (principal); I16.1 Hypertensive emergency; G81.94 Hemiplegia, unspecified affecting left nondominant side; N39.0 Urinary tract infection, site not specified; R29.701 NIHSS score 1; R20.0 Anesthesia of skin; R20.2 Paresthesia of skin; E11.65 Type 2 diabetes mellitus with hyperglycemia; I10 Essential (primary) hypertension; E78.5 Hyperlipidemia, unspecified; D64.9 Anemia, unspecified; K59.00 Constipation, unspecified; E66.9 Obesity, unspecified; Z68.34 Body mass index [BMI] 34.0-34.9, adult; E88.81 Metabolic syndrome and other insulin resistance; E11.42 Type 2 diabetes mellitus with diabetic polyneuropathy; Z79.84 Long term (current) use of oral hypoglycemic drugs; E11.40 Type 2 diabetes mellitus with diabetic neuropathy, unspecified
CPT/HCPCS: 36415; 70450-TC; 70544-TC; 70547-TC; 70551-TC; 80048; 80053; 81003; 82465; 82550; 82607; 82962; 83036; 83718; 83721; 84443; 84478; 84484; 85025; 85027; 85610; 86850; 86900; 86901; 87086; 87186; 93005; 93010; 93225; 93226; 93306-TC; 93880-TC; 97116-GP; 97161-GP; 99285-25

== ENCOUNTER 2020-03-27 04:42 | Day surgery (SDC) | payer OTHER ==
[2020-03-26 15:35] VITALS: BMI 34.7
[2020-03-27] MEDS ORDERED: LIDOCAINE HCL 1%, 10 MG/ML (20ML VIAL) ONE (10:35)
[2020-03-27] MEDS ORDERED: MIDAZOLAM HCL 2 MG/2 ML SINGLE DOSE VIAL ONE (10:55)
[2020-03-27] MEDS ORDERED: ceFAZolin SODIUM 1 GM VIAL IVPB ONE (10:55)
[2020-03-27] MEDS ORDERED: BUPIVACAINE HCL/PF 0.5% (5 MG/ML) 30 ML VIAL IJ ONE (11:39)
[2020-03-27] MEDS ORDERED: oxyCODONE HCL 5 MG TABLET PO PRN ×2 (11:43)
[2020-03-27] MEDS ORDERED: ONDANSETRON 4 MG/2 ML VIAL IVPUSH PRN (11:43)
[2020-03-27] MEDS ORDERED: LACTATED RINGERS SOLUTION 1,000 ML IV SCH (11:45)
[2020-03-27 15:43] VITALS: BP 145/65; PULSE 73; TEMP 97.3
== END 2020-03-27 14:45 | disposition home or self-care (01) ==
LOC: JASU-SURG 04:42
PROVIDERS: ATTEND Orthopaedic Surgery
PROC: 01N50ZZ Release Median Nerve, Open Approach (ICD-10-PCS; principal; 2020-03-27 10:00)
DX: G56.01 Carpal tunnel syndrome, right upper limb (principal); M65.88 Other synovitis and tenosynovitis, other site
CPT/HCPCS: 82962; 88304-TC; 94760

== ENCOUNTER 2021-03-19 22:12 | Inpatient (IN) | payer OTHER ==
[2021-03-19] MEDS ORDERED: ATROPINE SULFATE 1 MG/10 ML DISP.SYRIN ONE (22:22)
[2021-03-19] MEDS ORDERED: ATROPINE SULFATE 1 MG/10 ML DISP.SYRIN IVPUSH ONE (22:32)
[2021-03-19 22:41] LABS: VENOUS BASE EXCESS -5.8 mmol/L (-2-2); VENOUS O2 SATURATION 25.3 % (70-80); VENOUS PH 7.301 (7.310-7.410)
[2021-03-19 22:42] LABS: BASO % 0.7 % (0-2.0); EOS % 1.5 % (0-4.5); HEMATOCRIT 32.8 % (32.4-45.2); HEMOGLOBIN 10.8 GM/dL (10.7-15.3); MCHC 32.9 g/dl (32.0-36.0); MEAN CELL VOLUME 82.1 fl (80-96); MEAN PLT VOLUME 9.7 fl (7.5-11.1); MONO % 7.2 % (3.8-10.2); NEUT % 45.6 % (42.8-82.8); PLATELET COUNT 171 10^3/uL (134-434); RDW 13.9 % (11.6-15.6); WHITE BLOOD COUNT 6.3 K/mm3 (4.0-10.0)
[2021-03-19 22:49] LABS: INR 1.01 (0.83-1.09); PROTHROMBIN TIME (PATIENT) 11.8 SEC (9.7-13.0)
[2021-03-19 22:51] LABS: ACTIVATED PTT 27.9 SECONDS (25.2-36.5)
[2021-03-19 23:00] LABS: CHLORIDE 104 mmol/L (98-107); SODIUM 134 mmol/L (136-145)
[2021-03-19 23:02] LABS: ALBUMIN 3.7 g/dl (3.4-5.0); BLOOD UREA NITROGEN 31.2 mg/dL (7-18); CALCIUM 8.3 mg/dL (8.5-10.1); CO2 24 mmol/L (21-32); GLUCOSE,RANDOM 189 mg/dL (74-106); MAGNESIUM 2.6 mg/dL (1.8-2.4)
[2021-03-19 23:06] LABS: CREATININE 3.2 mg/dL (0.55-1.3); SGOT/AST 40 U/L (15-37); SGPT/ALT 41 U/L (13-61)
[2021-03-19 23:08] LABS: ALK PHOS 94 U/L (45-117); BILIRUBIN,TOTAL 0.6 mg/dL (0.2-1); TOT PROT 7.6 g/dl (6.4-8.2)
[2021-03-19 23:38] LABS: ANION GAP 6 MMOL/L (8-16)
[2021-03-19] MEDS ORDERED: INSULIN REGULAR HUMAN 100 UNITS/ML *VIAL IVPUSH ONE (23:39)
[2021-03-19] MEDS ORDERED: DEXTROSE 50%-WATER - 25 GM/50 ML VIAL IVPUSH ONE (23:39)
[2021-03-19] MEDS ORDERED: CALCIUM GLUCONATE 10% - 1,000 MG/10 ML VIAL IVPUSH ONE (23:39)
[2021-03-19] MEDS ORDERED: ALBUTEROL SO4 0.083% IH SOL 2.5 MG/3 ML VIAL.NEB. NEB ONE ×2 (23:39→23:45)
[2021-03-19] MEDS ORDERED: SODIUM CHLORIDE 1,000 ML IV STA (23:43)
[2021-03-19] MEDS ORDERED: CALCIUM GLUCONATE 10% - 1,000 MG/10 ML VIAL ONE (23:45)
[2021-03-19] MEDS ORDERED: DEXTROSE 50%-WATER - 25 GM/50 ML VIAL ONE (23:46)
[2021-03-19] MEDS ORDERED: INSULIN REGULAR HUMAN 100 UNITS/ML *VIAL ONE (23:47)
[2021-03-19 23:48] LABS: EPI CELLS 10 /uL (0-25.1); HYALINE CASTS 1 /uL (0-3.1); PH,URINE 5.5 (5.0-8.0); URINE APPEARANCE CLEAR; URINE BACTERIA 30 /uL (0-1359); URINE BILIRUBIN NEGATIVE (NEGATIVE); URINE COLOR YELLOW; URINE GLUCOSE (UA) NEGATIVE (NEGATIVE); URINE KETONE NEGATIVE (NEGATIVE); URINE LEUK ESTERASE NEGATIVE (NEGATIVE); URINE NITRITE NEGATIVE (NEGATIVE); URINE PROTEIN TRACE (NEGATIVE); URINE RBC 34 /uL (0-23.9); URINE UROBILINOGEN 0.2 mg/dL (0.2-1.0); URINE WBC 4 /uL (0-25.8)
[2021-03-20] MEDS ORDERED: SODIUM ZIRCONIUM CYCLOSILICATE (LOKELMA) 5 GM PACKET PO ONE ×2 (00:11→08:15)
[2021-03-20] MEDS ORDERED: CALCIUM GLUCONATE 10% - 1,000 MG/10 ML VIAL IVPUSH ONE ×4 (00:11→22:11)
[2021-03-20] MEDS ORDERED: CALCIUM GLUCONATE 10% - 1,000 MG/10 ML VIAL ONE (00:23)
[2021-03-20] MEDS ORDERED: SODIUM ZIRCONIUM CYCLOSILICATE (LOKELMA) 5 GM PACKET ONE (00:23)
[2021-03-20] MEDS ORDERED: ONDANSETRON 4 MG/2 ML VIAL IVPUSH PRN (00:57)
[2021-03-20] MEDS ORDERED: SODIUM CHLORIDE 1,000 ML IV SCH (01:00)
[2021-03-20 02:51] LABS: BLOOD UREA NITROGEN 30.1 mg/dL (7-18)
[2021-03-20 02:53] LABS: CREATININE 2.8 mg/dL (0.55-1.3)
[2021-03-20] MEDS: HEPARIN NA (PORCINE) 5,000 UNITS/ML 1ML VIAL SQ SCH ×3 (06:11→22:41)
[2021-03-20] MEDS: INSULIN SLIDING SCALE (NOVOLOG) 1 VIAL SQ SCH ×4 (06:12→22:54)
[2021-03-20 07:14] LABS: BASO % 0.3 % (0-2.0); EOS % 0.4 % (0-4.5); HEMATOCRIT 31.6 % (32.4-45.2); HEMOGLOBIN 10.3 GM/dL (10.7-15.3); MCH 26.9 pg (25.7-33.7); MCHC 32.6 g/dl (32.0-36.0); MEAN CELL VOLUME 82.5 fl (80-96); MEAN PLT VOLUME 10.3 fl (7.5-11.1); MONO % 6.4 % (3.8-10.2); NEUT % 64.9 % (42.8-82.8); PLATELET COUNT 147 10^3/uL (134-434); RBC 3.83 M/mm3 (3.60-5.2); RDW 13.9 % (11.6-15.6); WHITE BLOOD COUNT 6.7 K/mm3 (4.0-10.0)
[2021-03-20 07:19] LABS: CHLORIDE 109 mmol/L (98-107); SODIUM 137 mmol/L (136-145)
[2021-03-20 07:21] LABS: ALBUMIN 3.2 g/dl (3.4-5.0); BLOOD UREA NITROGEN 31.4 mg/dL (7-18); CALCIUM 8.5 mg/dL (8.5-10.1); CO2 21 mmol/L (21-32); GLUCOSE,RANDOM 123 mg/dL (74-106)
[2021-03-20 07:24] LABS: MAGNESIUM 2.5 mg/dL (1.8-2.4)
[2021-03-20 07:25] LABS: CREATININE 2.8 mg/dL (0.55-1.3); PHOSPHOROUS 3.9 mg/dL (2.5-4.9); SGOT/AST 35 U/L (15-37); SGPT/ALT 38 U/L (13-61)
[2021-03-20 07:26] LABS: BILIRUBIN,TOTAL 0.8 mg/dL (0.2-1); TOT PROT 6.8 g/dl (6.4-8.2)
[2021-03-20 07:27] LABS: ALK PHOS 88 U/L (45-117)
[2021-03-20 07:36] LABS: ANION GAP 7 MMOL/L (8-16)
[2021-03-20] MEDS ORDERED: DEXTROSE 50%-WATER 25 GM/50 ML DISP.SYRIN ONE ×2 (08:15→13:38)
[2021-03-20] MEDS ORDERED: INSULIN REGULAR HUMAN 100 UNITS/ML *VIAL IVPUSH ONE ×3 (08:15→22:09)
[2021-03-20] MEDS ORDERED: DEXTROSE 50%-WATER - 25 GM/50 ML VIAL IVPUSH ONE ×2 (08:15→22:11)
[2021-03-20] MEDS ORDERED: INSULIN REGULAR HUMAN 100 UNITS/ML *VIAL ONE (08:16)
[2021-03-20] MEDS: ALBUTEROL SO4 0.083% IH SOL 2.5 MG/3 ML VIAL.NEB. NEB SCH ×4 (08:30→09:15)
[2021-03-20] MEDS: PANTOPRAZOLE SODIUM 40 MG VIAL IVPUSH SCH (09:19)
[2021-03-20] MEDS ORDERED: MUPIROCIN 2% TOPICAL OINTMENT FOR DECOLONIZATION NS SCH (10:00)
[2021-03-20] MEDS ORDERED: FUROSEMIDE 40 MG/4 ML INJECTABLE VIAL IVPUSH ONE (13:26)
[2021-03-20] MEDS ORDERED: SODIUM CHLORIDE 500 ML IV STA (13:27)
[2021-03-20] MEDS ORDERED: ALBUTEROL SO4 0.083% IH SOL 2.5 MG/3 ML VIAL.NEB. NEB ONE (13:30)
[2021-03-20] MEDS ORDERED: DEXTROSE 50%-WATER 25 GM/50 ML DISP.SYRIN IVPUSH ONE (13:30)
[2021-03-20] MEDS: SODIUM CHLORIDE 0.45% 1,000 ML IV SCH (13:46)
[2021-03-20 17:12] LABS: CHLORIDE 109 mmol/L (98-107); SODIUM 135 mmol/L (136-145)
[2021-03-20 17:15] LABS: BLOOD UREA NITROGEN 32.5 mg/dL (7-18); CALCIUM 8.7 mg/dL (8.5-10.1); CO2 20 mmol/L (21-32); GLUCOSE,RANDOM 147 mg/dL (74-106)
[2021-03-20 17:19] LABS: ANION GAP 6 MMOL/L (8-16)
[2021-03-20 20:32] LABS: CALCIUM 8.2 mg/dL (8.5-10.1); CHLORIDE 109 mmol/L (98-107); CO2 17 mmol/L (21-32); SODIUM 135 mmol/L (136-145)
[2021-03-20 20:34] LABS: BLOOD UREA NITROGEN 33.4 mg/dL (7-18); GLUCOSE,RANDOM 156 mg/dL (74-106)
[2021-03-20 20:37] LABS: ANION GAP 8 MMOL/L (8-16); CREATININE 3.1 mg/dL (0.55-1.3)
[2021-03-20 21:48] LABS: BLOOD UREA NITROGEN 33.9 mg/dL (7-18); CALCIUM 8.4 mg/dL (8.5-10.1)
[2021-03-20 21:52] LABS: CREATININE 3.2 mg/dL (0.55-1.3)
[2021-03-20] MEDS ORDERED: CHLORHEXIDINE GLUCONATE 4% CLEANSER FOR DECOLONIZATION TP SCH (22:00)
[2021-03-20] MEDS ORDERED: DEXTROSE 50%-WATER - 25 GM/50 ML VIAL ONE (22:39)
[2021-03-21 01:45] LABS: CHLORIDE 107 mmol/L (98-107); SODIUM 137 mmol/L (136-145)
[2021-03-21 01:47] LABS: ANION GAP 7 MMOL/L (8-16); BLOOD UREA NITROGEN 36.2 mg/dL (7-18); CALCIUM 8.9 mg/dL (8.5-10.1); CO2 23 mmol/L (21-32)
[2021-03-21 01:51] LABS: CREATININE 3.1 mg/dL (0.55-1.3)
[2021-03-21 01:52] LABS: GLUCOSE,RANDOM 49 mg/dL (74-106)
[2021-03-21] MEDS ORDERED: DEXTROSE 50%-WATER - 25 GM/50 ML VIAL IVPUSH ONE (02:12)
[2021-03-21] MEDS ORDERED: DEXTROSE 50%-WATER - 25 GM/50 ML VIAL ONE (02:25)
[2021-03-21 04:25] LABS: CALCIUM 8.5 mg/dL (8.5-10.1)
[2021-03-21 04:26] LABS: BLOOD UREA NITROGEN 33.5 mg/dL (7-18)
[2021-03-21 04:29] LABS: CREATININE 2.8 mg/dL (0.55-1.3)
[2021-03-21] MEDS: SODIUM CHLORIDE 0.45% 1,000 ML IV SCH ×3 (04:30→22:50)
[2021-03-21] MEDS: INSULIN SLIDING SCALE (NOVOLOG) 1 VIAL SQ SCH ×4 (06:25→21:23)
[2021-03-21] MEDS: HEPARIN NA (PORCINE) 5,000 UNITS/ML 1ML VIAL SQ SCH ×3 (06:25→21:17)
[2021-03-21 09:48] LABS: CALCIUM 8.9 mg/dL (8.5-10.1)
[2021-03-21 09:52] LABS: BLOOD UREA NITROGEN 31.1 mg/dL (7-18); CREATININE 2.5 mg/dL (0.55-1.3)
[2021-03-21] MEDS ORDERED: SODIUM ZIRCONIUM CYCLOSILICATE (LOKELMA) 5 GM PACKET PO SCH (10:00)
[2021-03-21] MEDS ORDERED: PT OWN MED DRAWER 7, Y5N ONE (10:57)
[2021-03-21] MEDS: PANTOPRAZOLE SODIUM 40 MG VIAL IVPUSH SCH (11:05)
[2021-03-21 12:18] VITALS: BMI 36.9
[2021-03-21 12:48] LABS: BLOOD UREA NITROGEN 30.9 mg/dL (7-18); CALCIUM 8.7 mg/dL (8.5-10.1)
[2021-03-21 12:51] LABS: CREATININE 2.5 mg/dL (0.55-1.3)
[2021-03-21] MEDS ORDERED: SODIUM ZIRCONIUM CYCLOSILICATE (LOKELMA) 5 GM PACKET PO ONE (14:11)
[2021-03-21] MEDS ORDERED: ONDANSETRON 4 MG/2 ML VIAL IVPUSH PRN (22:38)
[2021-03-22] MEDS: HEPARIN NA (PORCINE) 5,000 UNITS/ML 1ML VIAL SQ SCH ×3 (06:24→21:15)
[2021-03-22] MEDS: INSULIN SLIDING SCALE (NOVOLOG) 1 VIAL SQ SCH ×4 (06:24→21:20)
[2021-03-22] MEDS: PANTOPRAZOLE SODIUM 40 MG VIAL IVPUSH SCH (09:58)
[2021-03-22] MEDS: SODIUM CHLORIDE 0.45% 1,000 ML IV SCH ×2 (09:58→20:08)
[2021-03-22] MEDS: SODIUM ZIRCONIUM CYCLOSILICATE (LOKELMA) 5 GM PACKET PO SCH (09:58)
[2021-03-23] MEDS: SODIUM CHLORIDE 0.45% 1,000 ML IV SCH ×3 (02:13→11:47)
[2021-03-23] MEDS: HEPARIN NA (PORCINE) 5,000 UNITS/ML 1ML VIAL SQ SCH ×3 (05:51→21:09)
[2021-03-23] MEDS: INSULIN SLIDING SCALE (NOVOLOG) 1 VIAL SQ SCH ×2 (06:06→11:34)
[2021-03-23 10:06] LABS: BASO % 0.7 % (0-2.0); EOS % 2.1 % (0-4.5); HEMATOCRIT 32.3 % (32.4-45.2); HEMOGLOBIN 10.6 GM/dL (10.7-15.3); LYMPH % 54.3 % (8-40); MCHC 32.8 g/dl (32.0-36.0); MEAN CELL VOLUME 82.3 fl (80-96); MEAN PLT VOLUME 10.1 fl (7.5-11.1); MONO % 7.3 % (3.8-10.2); NEUT % 35.6 % (42.8-82.8); PLATELET COUNT 173 10^3/uL (134-434); RBC 3.92 M/mm3 (3.60-5.2); RDW 13.6 % (11.6-15.6); WHITE BLOOD COUNT 7.7 K/mm3 (4.0-10.0)
[2021-03-23] MEDS: PANTOPRAZOLE SODIUM 40 MG VIAL IVPUSH SCH (10:37)
[2021-03-23 10:38] LABS: BLOOD UREA NITROGEN 22.5 mg/dL (7-18)
[2021-03-23 10:41] LABS: CREATININE 1.8 mg/dL (0.55-1.3)
[2021-03-23] MEDS: SODIUM ZIRCONIUM CYCLOSILICATE (LOKELMA) 5 GM PACKET PO SCH (11:31)
[2021-03-24] MEDS: SODIUM CHLORIDE 0.45% 1,000 ML IV SCH (02:59)
[2021-03-24] MEDS: HEPARIN NA (PORCINE) 5,000 UNITS/ML 1ML VIAL SQ SCH ×3 (05:43→21:07)
[2021-03-24 08:50] LABS: BASO % 0.5 % (0-2.0); EOS % 1.9 % (0-4.5); HEMATOCRIT 30.7 % (32.4-45.2); HEMOGLOBIN 10.5 GM/dL (10.7-15.3); MCH 27.5 pg (25.7-33.7); MCHC 34.2 g/dl (32.0-36.0); MEAN CELL VOLUME 80.3 fl (80-96); MEAN PLT VOLUME 9.8 fl (7.5-11.1); MONO % 6.3 % (3.8-10.2); NEUT % 32.3 % (42.8-82.8); PLATELET COUNT 181 10^3/uL (134-434); RBC 3.83 M/mm3 (3.60-5.2); RDW 13.4 % (11.6-15.6); WHITE BLOOD COUNT 7.8 K/mm3 (4.0-10.0)
[2021-03-24 09:16] LABS: ALBUMIN 3.4 g/dl (3.4-5.0); BLOOD UREA NITROGEN 21.4 mg/dL (7-18)
[2021-03-24 09:19] LABS: CREATININE 1.7 mg/dL (0.55-1.3); PHOSPHOROUS 3.5 mg/dL (2.5-4.9)
[2021-03-24 09:21] LABS: BILIRUBIN,TOTAL 0.6 mg/dL (0.2-1); TOT PROT 7.3 g/dl (6.4-8.2)
[2021-03-24] MEDS: amLODIPine BESYLATE 5 MG TABLET (FP) PO SCH (11:11)
[2021-03-24] MEDS: PANTOPRAZOLE 40 MG TABLET PO SCH (11:11)
[2021-03-24] MEDS: SODIUM ZIRCONIUM CYCLOSILICATE (LOKELMA) 5 GM PACKET PO SCH (14:09)
[2021-03-25] MEDS: HEPARIN NA (PORCINE) 5,000 UNITS/ML 1ML VIAL SQ SCH ×2 (06:02→13:59)
[2021-03-25] MEDS: PANTOPRAZOLE 40 MG TABLET PO SCH (09:46)
[2021-03-25] MEDS: amLODIPine BESYLATE 5 MG TABLET (FP) PO SCH (09:46)
[2021-03-25] MEDS ORDERED: BISACODYL 5 MG TABLET.DR (FP) PO ONE (10:00)
[2021-03-25] MEDS ORDERED: SODIUM ZIRCONIUM CYCLOSILICATE (LOKELMA) 5 GM PACKET PO SCH (12:00)
[2021-03-25 15:15] VITALS: BP 169/70; PULSE 76; TEMP 98.1
== END 2021-03-25 17:26 | disposition home or self-care (01) | DRG 682 ==
LOC: JER 22:12 → JERBED 22:51 → JICU 03-20 02:51 → J5S 03-21 22:28
PROVIDERS: ADMIT Internal Medicine Pulmonary Disease; ATTEND Family Medicine
DX: N17.9 Acute kidney failure, unspecified (principal); G93.41 Metabolic encephalopathy; N39.0 Urinary tract infection, site not specified; E87.2 Acidosis; E11.22 Type 2 diabetes mellitus with diabetic chronic kidney disease; E87.5 Hyperkalemia; R00.1 Bradycardia, unspecified; R41.82 Altered mental status, unspecified; E78.5 Hyperlipidemia, unspecified; E86.0 Dehydration; I25.2 Old myocardial infarction; I10 Essential (primary) hypertension; E11.9 Type 2 diabetes mellitus without complications; D64.9 Anemia, unspecified; R53.83 Other fatigue
CPT/HCPCS: 36415; 70450-TC; 71045-TC-FY; 76775-TC; 80048; 80053; 80307; 81003; 82436; 82550; 82553; 82803; 82962; 83605; 83735; 83880; 84100; 84132; 84133; 84300; 84436; 84439; 84443; 84481; 84484; 85025; 85610; 85730; 87040; 87086; 93005; 93010; 94640; 97116-GP; 97162-GP; 99285-25; C9803; J1644; U0003; U0005

== ENCOUNTER 2021-05-30 11:13 | Observation (INO) | payer OTHER ==
[2021-05-30 11:48] VITALS: BMI 34.2
[2021-05-30] MEDS ORDERED: LIDOCAINE 5% TOPICAL PATCH TP ONE (12:13)
[2021-05-30] MEDS ORDERED: ACETAMINOPHEN 1000 MG/100 ML BAG IVPB ONE (12:14)
[2021-05-30] MEDS ORDERED: ACETAMINOPHEN INJECTION 100 ML IVPB ONE (12:21)
[2021-05-30] MEDS ORDERED: LIDOCAINE 5% TOPICAL PATCH ONE (12:21)
[2021-05-30 12:50] LABS: BASO % 0.9 % (0-2.0); EOS % 1.9 % (0-4.5); HEMATOCRIT 33.4 % (32.4-45.2); HEMOGLOBIN 10.5 GM/dL (10.7-15.3); LYMPH % 50.8 % (8-40); MCH 25.8 pg (25.7-33.7); MCHC 31.6 g/dl (32.0-36.0); MEAN CELL VOLUME 81.8 fl (80-96); MEAN PLT VOLUME 9.9 fl (7.5-11.1); MONO % 7.6 % (3.8-10.2); NEUT % 38.8 % (42.8-82.8); PLATELET COUNT 181 10^3/uL (134-434); RBC 4.08 M/mm3 (3.60-5.2); RDW 13.4 % (11.6-15.6); WHITE BLOOD COUNT 6.6 K/mm3 (4.0-10.0)
[2021-05-30 12:52] LABS: EPI CELLS 2 /uL (0-25.1); HYALINE CASTS 0 /uL (0-3.1); URINE APPEARANCE CLEAR; URINE BACTERIA 126 /uL (0-1359); URINE BILIRUBIN NEGATIVE (NEGATIVE); URINE COLOR YELLOW; URINE GLUCOSE (UA) NEGATIVE (NEGATIVE); URINE KETONE NEGATIVE (NEGATIVE); URINE LEUK ESTERASE 2+ (NEGATIVE); URINE NITRITE NEGATIVE (NEGATIVE); URINE PROTEIN NEGATIVE (NEGATIVE); URINE RBC 5 /uL (0-23.9); URINE UROBILINOGEN 0.2 mg/dL (0.2-1.0); URINE WBC 105 /uL (0-25.8)
[2021-05-30 13:17] LABS: CALCIUM 9.5 mg/dL (8.5-10.1)
[2021-05-30 13:20] LABS: CREATININE 1.7 mg/dL (0.55-1.3)
[2021-05-30 13:22] LABS: TOT PROT 7.9 g/dl (6.4-8.2)
[2021-05-30] MEDS ORDERED: CEFTRIAXONE 1 GM in DEXTROSE 5%-WATER - 100 ML IVPB ONE (17:17)
[2021-05-30] MEDS ORDERED: CEFTRIAXONE 1 GM/50 ML BAG ONE (17:24)
[2021-05-30] MEDS ORDERED: SODIUM ZIRCONIUM CYCLOSILICATE (LOKELMA) 5 GM PACKET ONE (19:40)
[2021-05-30] MEDS: SODIUM ZIRCONIUM CYCLOSILICATE (LOKELMA) 5 GM PACKET PO SCH (19:47)
[2021-05-30] MEDS ORDERED: LIDOCAINE PATCH REMOVAL MC ONE (22:00)
[2021-05-30] MEDS ORDERED: ROSUVASTATIN CA 20 MG TABLET PO SCH (22:00)
[2021-05-31 07:21] LABS: BASO % 0.6 % (0-2.0); HEMATOCRIT 32.5 % (32.4-45.2); HEMOGLOBIN 10.3 GM/dL (10.7-15.3); LYMPH % 48.1 % (8-40); MCHC 31.6 g/dl (32.0-36.0); MEAN CELL VOLUME 82.3 fl (80-96); MEAN PLT VOLUME 9.8 fl (7.5-11.1); NEUT % 41.3 % (42.8-82.8); PLATELET COUNT 180 10^3/uL (134-434); RBC 3.95 M/mm3 (3.60-5.2); RDW 13.5 % (11.6-15.6); WHITE BLOOD COUNT 7.1 K/mm3 (4.0-10.0)
[2021-05-31 07:41] LABS: ALBUMIN 3.8 g/dl (3.4-5.0); BLOOD UREA NITROGEN 24.7 mg/dL (7-18)
[2021-05-31 07:42] LABS: CREATININE 1.7 mg/dL (0.55-1.3)
[2021-05-31 07:43] LABS: TOT PROT 7.5 g/dl (6.4-8.2)
[2021-05-31 07:45] LABS: BILIRUBIN,TOTAL 0.8 mg/dL (0.2-1)
[2021-05-31] MEDS ORDERED: PANTOPRAZOLE 40 MG TABLET ONE (08:21)
[2021-05-31] MEDS ORDERED: CEFTRIAXONE 1 GM/50 ML BAG ONE (08:21)
[2021-05-31] MEDS ORDERED: amLODIPine BESYLATE 5 MG TABLET (FP) ONE (08:21)
[2021-05-31] MEDS ORDERED: SODIUM ZIRCONIUM CYCLOSILICATE (LOKELMA) 5 GM PACKET ONE (08:21)
[2021-05-31] MEDS: SODIUM ZIRCONIUM CYCLOSILICATE (LOKELMA) 5 GM PACKET PO SCH (09:33)
[2021-05-31] MEDS ORDERED: CEFTRIAXONE 1 GM in DEXTROSE 5%-WATER - 50 ML IVPB SCH (10:00)
[2021-05-31] MEDS ORDERED: PANTOPRAZOLE 40 MG TABLET PO SCH (10:00)
[2021-05-31] MEDS ORDERED: amLODIPine BESYLATE 5 MG TABLET (FP) PO SCH (10:00)
[2021-05-31 11:51] VITALS: TEMP 98.2
[2021-05-31] MEDS ORDERED: POLYETHYLENE GLYCOL (HEALTHYLAX) 3350 17 GM PACKET PO SCH (14:30)
[2021-05-31] MEDS ORDERED: POLYETHYLENE GLYCOL (HEALTHYLAX) 3350 17 GM PACKET ONE (14:53)
[2021-05-31 16:21] VITALS: BP 146/58; PULSE 80
== END 2021-05-31 16:40 | disposition home or self-care (01) ==
LOC: JER 11:13 → JERBED 17:18
PROVIDERS: ADMIT Internal Medicine; ATTEND Family Medicine
PROC: 3E03329 Introduction of Other Anti-infective into Peripheral Vein, Percutaneous Approach (ICD-10-PCS; principal; 2021-05-30)
PROC: 3E033NZ Introduction of Analgesics, Hypnotics, Sedatives into Peripheral Vein, Percutaneous Approach (ICD-10-PCS; 2021-05-30)
DX: I12.9 Hypertensive chronic kidney disease with stage 1 through stage 4 chronic kidney disease, or unspecified chronic kidney disease (principal); E78.5 Hyperlipidemia, unspecified; N17.9 Acute kidney failure, unspecified; R79.89 Other specified abnormal findings of blood chemistry; M54.6 Pain in thoracic spine; R00.1 Bradycardia, unspecified; I25.2 Old myocardial infarction; E11.9 Type 2 diabetes mellitus without complications; D64.9 Anemia, unspecified; K21.9 Gastro-esophageal reflux disease without esophagitis; G89.29 Other chronic pain; M54.59 Other low back pain
CPT/HCPCS: 36415; 71046-TC-FY; 74176-TC; 76705-TC; 80053; 81003; 82550; 82553; 83690; 84484; 85025; 87086; 93005; 93010; 96365; 96367; 96375; 99285-25; C9803; G0378; J0131; U0003; U0005

== ENCOUNTER 2023-03-23 16:12 | Inpatient (IN) | payer OTHER ==
[2023-03-23] MEDS ORDERED: IBUPROFEN 600 MG TABLET (FP) PO ONE (16:55)
[2023-03-23] MEDS ORDERED: LIDOCAINE 5% TOPICAL PATCH TP ONE (17:01)
[2023-03-23 17:16] LABS: BASO % 0.7 % (0-2.0); HEMATOCRIT 33.6 % (32.4-45.2); HEMOGLOBIN 10.8 GM/dL (10.7-15.3); LYMPH % 40.4 % (8-40); MCH 26.1 pg (25.7-33.7); MCHC 32.2 g/dl (32.0-36.0); MEAN CELL VOLUME 80.8 fl (80-96); MEAN PLT VOLUME 10.1 fl (7.5-11.1); MONO % 9.8 % (3.8-10.2); NEUT % 46.1 % (42.8-82.8); PLATELET COUNT 181 10^3/uL (134-434); RBC 4.15 M/mm3 (3.60-5.2); RDW 14.1 % (11.6-15.6); WHITE BLOOD COUNT 7.6 K/mm3 (4.0-10.0)
[2023-03-23] MEDS ORDERED: LIDOCAINE 4% PATCH TP ONE ×2 (17:25→17:26)
[2023-03-23 17:41] LABS: POTASSIUM 4.3 mmol/L (3.5-5.1)
[2023-03-23 17:42] LABS: CALCIUM 9.2 mg/dL (8.5-10.1)
[2023-03-23 17:43] LABS: BLOOD UREA NITROGEN 16.8 mg/dL (7-18)
[2023-03-23 17:46] LABS: CREATININE 1.7 mg/dL (0.55-1.3)
[2023-03-23 17:48] LABS: BILIRUBIN,TOTAL 0.8 mg/dL (0.2-1); TOT PROT 7.9 g/dl (6.4-8.2)
[2023-03-23] MEDS ORDERED: morphine CARPU-JECT 4 MG/1 ML DISP.SYRIN IVPUSH ONE (17:56)
[2023-03-23] MEDS ORDERED: morphine SULFATE 4 MG/ML VIAL ONE (18:06)
[2023-03-23] MEDS ORDERED: LIDOCAINE PATCH REMOVAL MC ONE (22:00)
[2023-03-23] MEDS: HEPARIN NA (PORCINE) 5,000 UNITS/ML 1ML VIAL SQ SCH (22:00)
[2023-03-23] MEDS ORDERED: ACETAMINOPHEN INJECTION 100 ML IVPB ONE (23:36)
[2023-03-23] MEDS: ACETAMINOPHEN 1000 MG/100 ML BAG IVPB PRN (23:44)
[2023-03-24] MEDS ORDERED: HEPARIN NA (PORCINE) 5,000 UNITS/ML 1ML VIAL ONE (06:01)
[2023-03-24] MEDS: HEPARIN NA (PORCINE) 5,000 UNITS/ML 1ML VIAL SQ SCH ×3 (06:04→21:51)
[2023-03-24 07:48] LABS: HEMATOCRIT 32.1 % (32.4-45.2); HEMOGLOBIN 10.2 GM/dL (10.7-15.3); MCH 26.1 pg (25.7-33.7); MCHC 31.7 g/dl (32.0-36.0); MEAN CELL VOLUME 82.4 fl (80-96); MEAN PLT VOLUME 10.1 fl (7.5-11.1); PLATELET COUNT 176 10^3/uL (134-434); RBC 3.89 M/mm3 (3.60-5.2); RDW 13.6 % (11.6-15.6); WHITE BLOOD COUNT 5.9 K/mm3 (4.0-10.0)
[2023-03-24 08:01] LABS: CHLORIDE 108 mmol/L (98-107); POTASSIUM 4.1 mmol/L (3.5-5.1); SODIUM 141 mmol/L (136-145)
[2023-03-24 08:10] LABS: CHOLESTEROL 101 mg/dL (50-200); PHOSPHOROUS 4.1 mg/dL (2.5-4.9); SGOT/AST 20 U/L (15-37)
[2023-03-24 08:11] LABS: BILIRUBIN,TOTAL 0.8 mg/dL (0.2-1); LDL CHOLESTEROL (ONLY SJRH) 52 mg/dL (5-100)
[2023-03-24 08:12] LABS: ALBUMIN 3.4 g/dl (3.4-5.0); ALK PHOS 104 U/L (45-117); BLOOD UREA NITROGEN 17.5 mg/dL (7-18); GLUCOSE,RANDOM 107 mg/dL (74-106)
[2023-03-24 08:13] LABS: ANION GAP 7 mmol/L (4-13); CO2 26 mmol/L (21-32); HDL CHOLESTEROL 44 mg/dL (40-60); SGPT/ALT 18 U/L (13-61)
[2023-03-24 08:14] LABS: CALCIUM 8.6 mg/dL (8.5-10.1)
[2023-03-24 08:26] LABS: CREATININE 1.6 mg/dL (0.55-1.3)
[2023-03-24 09:27] LABS: ERYTHROCYTE SEDIMENTATION RATE 28 mm/hr (0-30)
[2023-03-24] MEDS ORDERED: amLODIPine BESYLATE 5 MG TABLET (FP) PO SCH ×2 (10:00→15:25)
[2023-03-24] MEDS: PANTOPRAZOLE 40 MG TABLET PO SCH (10:36)
[2023-03-24] MEDS ORDERED: ALPRAZolam 1 MG TABLET PO ONE (10:45)
[2023-03-24] MEDS ORDERED: ACETAMINOPHEN INJECTION 100 ML IVPB ONE (13:24)
[2023-03-24] MEDS ORDERED: ALPRAZolam 1 MG TABLET ONE (13:35)
[2023-03-24] MEDS: ACETAMINOPHEN 1000 MG/100 ML BAG IVPB PRN (13:35)
[2023-03-24] MEDS ORDERED: amLODIPine BESYLATE 5 MG TABLET (FP) PO ONE (15:26)
[2023-03-24] MEDS ORDERED: amLODIPine BESYLATE 5 MG TABLET (FP) ONE (16:47)
[2023-03-24 20:07] VITALS: BMI 32.5
[2023-03-24] MEDS: ROSUVASTATIN CA 20 MG TABLET PO SCH (21:51)
[2023-03-25] MEDS: HEPARIN NA (PORCINE) 5,000 UNITS/ML 1ML VIAL SQ SCH ×3 (05:50→21:09)
[2023-03-25] MEDS: HYDROmorphone HCL 2 MG TABLET PO PRN ×3 (05:50→21:09)
[2023-03-25 09:45] LABS: HEMATOCRIT 31.5 % (32.4-45.2); HEMOGLOBIN 10.3 GM/dL (10.7-15.3); MCH 26.2 pg (25.7-33.7); MCHC 32.7 g/dl (32.0-36.0); MEAN CELL VOLUME 80.2 fl (80-96); PLATELET COUNT 169 10^3/uL (134-434); RBC 3.93 M/mm3 (3.60-5.2); WHITE BLOOD COUNT 6.6 K/mm3 (4.0-10.0)
[2023-03-25 09:52] LABS: POTASSIUM 4.1 mmol/L (3.5-5.1)
[2023-03-25 10:03] LABS: CALCIUM 8.6 mg/dL (8.5-10.1)
[2023-03-25 10:04] LABS: BLOOD UREA NITROGEN 18.5 mg/dL (7-18)
[2023-03-25 10:07] LABS: CREATININE 1.5 mg/dL (0.55-1.3); PHOSPHOROUS 3.4 mg/dL (2.5-4.9)
[2023-03-25] MEDS: POLYETHYLENE GLYCOL (HEALTHYLAX) 3350 17 GM PACKET PO SCH (11:02)
[2023-03-25] MEDS: PANTOPRAZOLE 40 MG TABLET PO SCH (11:02)
[2023-03-25] MEDS: ASPIRIN 81 MG CHEWABLE TABLETS PO SCH (11:03)
[2023-03-25] MEDS: amLODIPine BESYLATE 10 MG TABLET (FP) PO SCH (11:03)
[2023-03-25] MEDS: ACETAMINOPHEN 1000 MG/100 ML BAG IVPB PRN ×2 (11:37→21:08)
[2023-03-25] MEDS: ROSUVASTATIN CA 20 MG TABLET PO SCH (21:09)
[2023-03-26] MEDS: HEPARIN NA (PORCINE) 5,000 UNITS/ML 1ML VIAL SQ SCH ×3 (05:49→22:53)
[2023-03-26] MEDS: POLYETHYLENE GLYCOL (HEALTHYLAX) 3350 17 GM PACKET PO SCH (10:41)
[2023-03-26] MEDS: ASPIRIN 81 MG CHEWABLE TABLETS PO SCH (10:42)
[2023-03-26] MEDS: PANTOPRAZOLE 40 MG TABLET PO SCH (10:42)
[2023-03-26] MEDS: amLODIPine BESYLATE 10 MG TABLET (FP) PO SCH (10:42)
[2023-03-26] MEDS: DOCUSATE SODIUM 100 MG CAPSULE (FP) PO SCH ×2 (13:41→22:53)
[2023-03-26] MEDS ORDERED: SENNOSIDES 8.8 MG/5 ML SYRUP PO ONE (18:00)
[2023-03-26] MEDS: ROSUVASTATIN CA 20 MG TABLET PO SCH (22:53)
[2023-03-27] MEDS: DOCUSATE SODIUM 100 MG CAPSULE (FP) PO SCH ×3 (06:49→21:27)
[2023-03-27] MEDS: HEPARIN NA (PORCINE) 5,000 UNITS/ML 1ML VIAL SQ SCH ×3 (06:49→21:27)
[2023-03-27] MEDS: POLYETHYLENE GLYCOL (HEALTHYLAX) 3350 17 GM PACKET PO SCH (09:20)
[2023-03-27] MEDS: amLODIPine BESYLATE 10 MG TABLET (FP) PO SCH (09:20)
[2023-03-27] MEDS: PANTOPRAZOLE 40 MG TABLET PO SCH (09:20)
[2023-03-27] MEDS: ASPIRIN 81 MG CHEWABLE TABLETS PO SCH (09:20)
[2023-03-27] MEDS ORDERED: MAGNESIUM HYDROX 2400MG/30ML ORAL SUSPENSION 30 ML CUP PO ONE (16:00)
[2023-03-27] MEDS ORDERED: BISACODYL 10 MG SUPP.RECT PR ONE (16:01)
[2023-03-27] MEDS: ROSUVASTATIN CA 20 MG TABLET PO SCH (21:26)
[2023-03-28] MEDS: DOCUSATE SODIUM 100 MG CAPSULE (FP) PO SCH ×4 (05:56→23:45)
[2023-03-28] MEDS: HEPARIN NA (PORCINE) 5,000 UNITS/ML 1ML VIAL SQ SCH ×3 (05:56→21:26)
[2023-03-28 09:13] LABS: EOS % 2.5 % (0-4.5); HEMATOCRIT 36.9 % (32.4-45.2); HEMOGLOBIN 11.8 GM/dL (10.7-15.3); LYMPH % 39.6 % (8-40); MCH 26.1 pg (25.7-33.7); MCHC 31.9 g/dl (32.0-36.0); MEAN CELL VOLUME 81.8 fl (80-96); MEAN PLT VOLUME 9.7 fl (7.5-11.1); NEUT % 49.9 % (42.8-82.8); PLATELET COUNT 183 10^3/uL (134-434); RBC 4.51 M/mm3 (3.60-5.2); RDW 13.9 % (11.6-15.6)
[2023-03-28] MEDS: PANTOPRAZOLE 40 MG TABLET PO SCH (09:22)
[2023-03-28] MEDS: POLYETHYLENE GLYCOL (HEALTHYLAX) 3350 17 GM PACKET PO SCH ×2 (09:23→09:27)
[2023-03-28] MEDS: amLODIPine BESYLATE 10 MG TABLET (FP) PO SCH (09:23)
[2023-03-28] MEDS: ASPIRIN 81 MG CHEWABLE TABLETS PO SCH (09:23)
[2023-03-28 09:28] LABS: POTASSIUM 4.6 mmol/L (3.5-5.1)
[2023-03-28 09:31] LABS: ALBUMIN 3.8 g/dl (3.4-5.0)
[2023-03-28 09:33] LABS: CREATININE 1.9 mg/dL (0.55-1.3)
[2023-03-28 09:35] LABS: BILIRUBIN,TOTAL 0.8 mg/dL (0.2-1); TOT PROT 7.9 g/dl (6.4-8.2)
[2023-03-28] MEDS ORDERED: Linaclotide [Linzess] 72 MCG Capsule PO SCH (11:00)
[2023-03-28] MEDS: Linaclotide [Linzess] 72 MCG Capsule PO SCH (21:05)
[2023-03-28] MEDS: ROSUVASTATIN CA 20 MG TABLET PO SCH (21:26)
[2023-03-29] MEDS: HEPARIN NA (PORCINE) 5,000 UNITS/ML 1ML VIAL SQ SCH ×3 (05:58→22:25)
[2023-03-29] MEDS: DOCUSATE SODIUM 100 MG CAPSULE (FP) PO SCH ×3 (05:58→22:25)
[2023-03-29 09:21] LABS: BASO % 0.7 % (0-2.0); HEMATOCRIT 35.4 % (32.4-45.2); HEMOGLOBIN 11.1 GM/dL (10.7-15.3); LYMPH % 40.7 % (8-40); MCH 25.8 pg (25.7-33.7); MCHC 31.3 g/dl (32.0-36.0); MEAN CELL VOLUME 82.2 fl (80-96); MEAN PLT VOLUME 10.4 fl (7.5-11.1); MONO % 7.5 % (3.8-10.2); NEUT % 48.1 % (42.8-82.8); PLATELET COUNT 175 10^3/uL (134-434); RDW 13.8 % (11.6-15.6); WHITE BLOOD COUNT 6.7 K/mm3 (4.0-10.0)
[2023-03-29 09:42] LABS: POTASSIUM 4.5 mmol/L (3.5-5.1)
[2023-03-29] MEDS: Linaclotide [Linzess] 72 MCG Capsule PO SCH (09:52)
[2023-03-29] MEDS: ASPIRIN 81 MG CHEWABLE TABLETS PO SCH (09:52)
[2023-03-29] MEDS: amLODIPine BESYLATE 10 MG TABLET (FP) PO SCH (09:52)
[2023-03-29] MEDS: POLYETHYLENE GLYCOL (HEALTHYLAX) 3350 17 GM PACKET PO SCH (09:52)
[2023-03-29] MEDS: PANTOPRAZOLE 40 MG TABLET PO SCH (09:52)
[2023-03-29 09:54] LABS: BLOOD UREA NITROGEN 29.7 mg/dL (7-18)
[2023-03-29 09:55] LABS: CALCIUM 9.1 mg/dL (8.5-10.1)
[2023-03-29 09:56] LABS: ALBUMIN 3.8 g/dl (3.4-5.0)
[2023-03-29 09:57] LABS: CREATININE 1.8 mg/dL (0.55-1.3)
[2023-03-29 09:59] LABS: BILIRUBIN,TOTAL 0.7 mg/dL (0.2-1); TOT PROT 7.8 g/dl (6.4-8.2)
[2023-03-29] MEDS ORDERED: MAGNESIUM HYDROX 2400MG/30ML ORAL SUSPENSION 30 ML CUP PO ONE (15:15)
[2023-03-29] MEDS: ROSUVASTATIN CA 20 MG TABLET PO SCH (22:25)
[2023-03-30] MEDS: HEPARIN NA (PORCINE) 5,000 UNITS/ML 1ML VIAL SQ SCH ×2 (06:41→13:46)
[2023-03-30] MEDS: DOCUSATE SODIUM 100 MG CAPSULE (FP) PO SCH ×3 (06:42→21:25)
[2023-03-30] MEDS: PANTOPRAZOLE 40 MG TABLET PO SCH (09:54)
[2023-03-30] MEDS: amLODIPine BESYLATE 10 MG TABLET (FP) PO SCH (09:54)
[2023-03-30] MEDS: ASPIRIN 81 MG CHEWABLE TABLETS PO SCH (09:54)
[2023-03-30] MEDS: POLYETHYLENE GLYCOL (HEALTHYLAX) 3350 17 GM PACKET PO SCH (09:55)
[2023-03-30] MEDS: Linaclotide [Linzess] 72 MCG Capsule PO SCH (09:55)
[2023-03-30] MEDS: ROSUVASTATIN CA 20 MG TABLET PO SCH (21:25)
[2023-03-31] MEDS: PATIENT'S OWN MEDICATION (NON-FORMULARY) (Linaclotide [Linzess] 72 MCG) PO SCH ×2 (00:36→21:54)
[2023-03-31] MEDS: POLYETHYLENE GLYCOL (HEALTHYLAX) 3350 17 GM PACKET PO SCH ×3 (00:36→21:46)
[2023-03-31] MEDS: DOCUSATE SODIUM 100 MG CAPSULE (FP) PO SCH ×3 (06:51→21:46)
[2023-03-31] MEDS: PANTOPRAZOLE 40 MG TABLET PO SCH (09:49)
[2023-03-31] MEDS: ASPIRIN 81 MG CHEWABLE TABLETS PO SCH (09:49)
[2023-03-31] MEDS: amLODIPine BESYLATE 10 MG TABLET (FP) PO SCH (09:49)
[2023-03-31] MEDS ORDERED: LACTULOSE 20 GM/30 ML UDC (FOR ORAL USE ONLY) PO ONE (09:59)
[2023-03-31] MEDS ORDERED: MINERAL OIL ENEMA 133 ML ENEMA RC ONE (10:00)
[2023-03-31] MEDS: ROSUVASTATIN CA 20 MG TABLET PO SCH (21:45)
[2023-04-01] MEDS: DOCUSATE SODIUM 100 MG CAPSULE (FP) PO SCH ×3 (05:41→22:09)
[2023-04-01] MEDS: PANTOPRAZOLE 40 MG TABLET PO SCH (11:03)
[2023-04-01] MEDS: ASPIRIN 81 MG CHEWABLE TABLETS PO SCH (11:03)
[2023-04-01] MEDS: POLYETHYLENE GLYCOL (HEALTHYLAX) 3350 17 GM PACKET PO SCH ×2 (11:03→22:09)
[2023-04-01] MEDS: amLODIPine BESYLATE 10 MG TABLET (FP) PO SCH (11:03)
[2023-04-01] MEDS: ROSUVASTATIN CA 20 MG TABLET PO SCH (22:08)
[2023-04-01] MEDS: PATIENT'S OWN MEDICATION (NON-FORMULARY) (Linaclotide [Linzess] 72 MCG) PO SCH (22:08)
[2023-04-01 22:55] VITALS: RESP 20
[2023-04-02] MEDS: DOCUSATE SODIUM 100 MG CAPSULE (FP) PO SCH ×2 (05:02→14:09)
[2023-04-02] MEDS: ASPIRIN 81 MG CHEWABLE TABLETS PO SCH (10:13)
[2023-04-02] MEDS: POLYETHYLENE GLYCOL (HEALTHYLAX) 3350 17 GM PACKET PO SCH (10:13)
[2023-04-02] MEDS: PANTOPRAZOLE 40 MG TABLET PO SCH (10:13)
[2023-04-02] MEDS: amLODIPine BESYLATE 10 MG TABLET (FP) PO SCH (10:13)
[2023-04-02 12:39] LABS: POTASSIUM 4.7 mmol/L (3.5-5.1)
[2023-04-02 12:47] LABS: BLOOD UREA NITROGEN 27.9 mg/dL (7-18); CALCIUM 9.3 mg/dL (8.5-10.1)
[2023-04-02 12:51] LABS: CREATININE 2.1 mg/dL (0.55-1.3)
[2023-04-02 15:14] VITALS: BP 136/66; PULSE 88; TEMP 98.5
[2023-04-02] MEDS ORDERED: LACTULOSE 20 GM/30 ML UDC (FOR ORAL USE ONLY) PO ONE (15:51)
== END 2023-04-02 16:26 | DRG 552 ==
LOC: JER 16:12 → JERBED 21:19 → OBSVTOIN 21:43 → J7W 03-24 18:27
PROVIDERS: ADMIT Family Medicine
DX: M48.061 Spinal stenosis, lumbar region without neurogenic claudication (principal); N17.9 Acute kidney failure, unspecified; D63.8 Anemia in other chronic diseases classified elsewhere; I25.2 Old myocardial infarction; N18.9 Chronic kidney disease, unspecified; I12.9 Hypertensive chronic kidney disease with stage 1 through stage 4 chronic kidney disease, or unspecified chronic kidney disease; E11.22 Type 2 diabetes mellitus with diabetic chronic kidney disease; I25.10 Atherosclerotic heart disease of native coronary artery without angina pectoris; I16.0 Hypertensive urgency; K59.09 Other constipation; M54.17 Radiculopathy, lumbosacral region; E87.5 Hyperkalemia; K21.9 Gastro-esophageal reflux disease without esophagitis
CPT/HCPCS: 36415; 72131-TC; 72158-TC; 72170-TC-FY; 72192-TC; 73700-TC-RT; 80048; 80053; 80061; 82962; 83036; 83735; 84100; 85025; 85027; 85651; 86140; 87635; 93005; 93010; 93971-TC; 97116-GP; 97161-GP; 99285-25; G0378; J1644

== ENCOUNTER 2024-04-21 15:46 | Emergency (ER) | payer OTHER ==
[2024-04-21 16:01] VITALS: BP 180/71; PULSE 69; RESP 18; TEMP 98.9; BMI 32.8
[2024-04-21] MEDS ORDERED: BENZOCAINE/MENTH/CETYLPYRD CL 1 EACH LOZENGE MM PRN (17:25)
[2024-04-21] MEDS ORDERED: BENZOCAINE/MENTH/CETYLPYRD CL 1 EACH LOZENGE MM ONE (18:21)
[2024-04-21] MEDS: BENZOCAINE/MENTH/CETYLPYRD CL 1 EACH LOZENGE MM ONE (18:42)
[2024-04-21 18:49] LABS: BASO % 0.6 % (0-2.0); EOS % 1.7 % (0-4.5); HEMATOCRIT 34.3 % (32.4-45.2); HEMOGLOBIN 11.1 GM/dL (10.7-15.3); LYMPH % 55.5 % (8-40); MCH 26.8 pg (25.7-33.7); MCHC 32.4 g/dl (32.0-36.0); MEAN CELL VOLUME 82.5 fl (80-96); MEAN PLT VOLUME 9.1 fl (7.5-11.1); MONO % 7.3 % (3.8-10.2); NEUT % 34.9 % (42.8-82.8); PLATELET COUNT 133 10^3/uL (134-434); RBC 4.16 M/mm3 (3.60-5.2); RDW 13.5 % (11.6-15.6); WHITE BLOOD COUNT 5.4 K/mm3 (4.0-10.0)
[2024-04-21 19:13] LABS: POTASSIUM 3.7 mmol/L (3.5-5.1)
[2024-04-21 19:16] LABS: CALCIUM 9.2 mg/dL (8.5-10.1)
[2024-04-21 19:17] LABS: BLOOD UREA NITROGEN 19.5 mg/dL (7-18)
[2024-04-21 19:20] LABS: CREATININE 1.4 mg/dL (0.55-1.3)
[2024-04-21 19:22] LABS: BILIRUBIN,TOTAL 1.2 mg/dL (0.2-1); TOT PROT 7.9 g/dl (6.4-8.2)
[2024-04-21] MEDS: MAG HYDROX/ALH/SMC/DPHA/LIDO 240 ML MOUTHWASH MM SCH (19:42)
== END 2024-04-21 21:11 | disposition home or self-care (01) ==
LOC: JER 15:46
DX: J04.0 Acute laryngitis (principal); B34.9 Viral infection, unspecified; J02.9 Acute pharyngitis, unspecified; R06.02 Shortness of breath; R05.9 Cough, unspecified; Z20.822 Contact with and (suspected) exposure to COVID-19
CPT/HCPCS: 0241U-QW; 36415; 71046-TC-FY; 80053; 83735; 85025; 87651; 99284-25